=== PATIENT | male | born 1960 | race Caucasian/White ===

== ENCOUNTER 2017-06-28 05:54 | Emergency (ER) | payer OTHER ==
[2017-06-28] MEDS ORDERED: NA CHLORIDE 0.9% 1,000 ML ONE (06:29)
[2017-06-28] MEDS ORDERED: ALBUTEROL 2.5 MG/3 ML NEB SOL ONE (06:29)
[2017-06-28] MEDS ORDERED: IPRATROPIUM BROM 0.5MG/2.5ML ONE (06:29)
[2017-06-28 07:35] LABS: Absolute Lymphocytes (CBC) 1.6 K/uL (0.7-4.9); Absolute Monocytes 1.1 K/uL (0.1-1.3); Absolute Neutrophil 5.4 K/uL (1.8-8.0); Basophils % 1.1 % (0-1.3); Eosinophils % 6.1 % (0-4.4); Hematocrit 45.3 % (39.6-49.0); Lymphocytes % 18.4 % (15.3-44.8); MCH 30.6 pg (27.0-35.0); MCV 92.2 fL (80-100); MPV 9.5 fL (7.6-11.3); Monocytes % 12.3 % (3.3-12.3); RBC Red Blood Cell Count 4.92 M/uL (4.33-5.43)
[2017-06-28 07:45] LABS: Potassium 3.9 mEq/L (3.6-5.0)
[2017-06-28] MEDS ORDERED: ACETAMINOPHEN 325 MG TABLET ONE (08:01)
[2017-06-28] MEDS ORDERED: HYDROCODONE/CHLORPHEN 5 ML/OSYR ONE (08:02)
--- NOTE | 2017-06-28 08:02 | EDPHYS ---
Physician Documentation [facility] Name: Danny Leroy Jr Age: 57 yrs Sex: Male : 1960 Arrival Date: 06/28/2017 Time: 05:57 Bed 18 Private MD: ED Physician Gonzalo Khan HPI: 06/28 06:16 This 57 yrs old Male presents to ER via Ambulatory with complaints of Cough, snw Congestion. 06:16 The patient or guardian reports airway noise, cough, that is constant, flu symptoms, snw low-grade fever, myalgias, no appetite. Onset: The symptoms/episode began/occurred suddenly, yesterday. Severity of symptoms: At their worst the symptoms were moderate, severe. Modifying factors: The symptoms are alleviated by nothing. Associated signs and symptoms: Pertinent positives: diarrhea, fever, nausea, vomiting. The patient has not experienced similar symptoms in the past. The patient has not recently seen a physician, the patient's primary care provider is Dr. Dr. Sutherland. hx of TB, tx x 6 months, had quit smoking and recently started again. Historical: - Allergies: 06:15 No Known Allergies; ag2 - Home Meds: 06:15 None [Active]; ag2 - PMHx: 06:15 Hypertension; ADD/ADHD; ag2 06:23 EXPOSED TO TB; Hepatitis; ag2 - PSHx: 06:23 sx on Right leg; ag2 - Immunization history:: Adult Immunizations not up to date. - Social history:: Smoking status: Patient uses tobacco products, smokes one-half pack cigarettes per day, The patient lives with family, No barriers to communication noted, The patient speaks fluent [place]. ROS: 06:14 Eyes: Negative for injury, pain, redness, and discharge, ENT: Negative for injury, snw pain, and discharge, Neck: Negative for injury, pain, and swelling, Cardiovascular: Negative for chest pain, palpitations, and edema. 06:14 Back: Negative for injury and pain, : Negative for injury, bleeding, discharge, and swelling, MS/Extremity: Negative for injury and deformity, Skin: Negative for injury, rash, and discoloration, Neuro: Negative for headache, weakness, numbness, tingling, and seizure. 06:14 Constitutional: Positive for body aches, chills, fatigue, fever, malaise, poor PO intake. 06:14 Respiratory: Positive for cough. 06:14 Abdomen/GI: Positive for diarrhea. Exam: 06:14 Head/Face: Normocephalic, atraumatic. Eyes: Pupils equal round and reactive to light, snw extra-ocular motions intact. Lids and lashes normal. Conjunctiva and sclera are non-icteric and not injected. Cornea within normal limits. Periorbital areas with no swelling, redness, or edema. 06:14 Neck: Trachea midline, no thyromegaly or masses palpated, and no cervical lymphadenopathy. Supple, full range of motion without nuchal rigidity, or vertebral point tenderness. No Meningismus. Chest/axilla: Normal chest wall appearance and motion. Nontender with no deformity. No lesions are appreciated. Cardiovascular: Regular rate and rhythm with a normal S1 and S2. No gallops, murmurs, or rubs. Normal PMI, no JVD. No pulse deficits. 06:14 Abdomen/GI: Soft, non-tender, with normal bowel sounds. No distension or tympany. No guarding or rebound. No evidence of tenderness throughout. Back: No spinal tenderness. No costovertebral tenderness. Full range of motion. MS/ Extremity: Pulses equal, no cyanosis. Neurovascular intact. Full, normal range of motion. Neuro: Awake and alert, GCS 15, oriented to person, place, time, and situation. Cranial nerves II-XII grossly intact. Motor strength 5/5 in all extremities. Sensory grossly intact. Cerebellar exam normal. Normal gait. 06:14 Constitutional: The patient appears alert, awake, restless, uncomfortable. 06:14 ENT: Mouth: Oral mucosa: dry, Voice: is normal. 06:14 Respiratory: the patient does not display signs of respiratory distress, Respirations: normal, Breath sounds: + upper airway congestion. wheezing: frequent cough. 06:14 Skin: Appearance: Color: normal in color, Temperature: normal temperature, Moisture: dry. Vital Signs: 06:25 BP 139 / 91; Pulse 102; Resp 19; Temp 99.4; Pulse Ox 94% on R/A; Pain 0/10; ag2 08:12 BP 134 / 79; Pulse 104; Resp 22; Pulse Ox 99% on R/A; ph 09:26 BP 128 / 60; Pulse 97; Resp 19; Pulse Ox 97% on R/A; aj MDM: 06:08 Patient medically screened. snw 08:09 Data reviewed: vital signs, nurses notes. Data interpreted: Pulse oximetry: on room air snw is 94 %. Interpretation: acceptable. Counseling: I had a detailed discussion with the patient and/or guardian regarding: the historical points, exam findings, and any diagnostic results supporting the discharge/admit diagnosis, the presence of at least one elevated blood pressure reading (>120/80) during this emergency department visit, lab results, radiology results, to return to the emergency department if symptoms worsen or persist or if there are any questions or concerns that arise at home. Special discussion: I have referred the patient to see his PCP for further evaluation of high blood pressure. Based on the history and exam findings, there is no indication for further emergent testing or inpatient evaluation. I discussed with the patient/guardian the need to see the primary care provider for further evaluation of the symptoms. 06/28 06:14 Order name: Flu; Complete Time: 07:07 snw 06/28 06:14 Order name: CBC with Diff; Complete Time: 07:59 snw 06/28 06:14 Order name: Chest Pa And Lat (2 Views) XRAY; Complete Time: 08:49 snw 06/28 06:14 Order name: Chem 7; Complete Time: 07:59 snw 06/28 06:14 Order name: Blood Culture Adult (2) snw Administered Medications: 06:35 Drug: Albuterol - atroVENT (3:1) (2.5 mg - 0.5 mg) 3 ml Route: Nebulizer; ea 07:00 Follow up: Response: No adverse reaction ea 08:09 Drug: NS 0.9% 1000 ml Route: IV; Rate: 1 bolus; Site: right antecubital; ph 09:28 Follow up: Response: No adverse reaction; IV Status: Completed infusion; IV Intake: aj 1000ml 08:09 Drug: Tussionex Pennkinetic ER 5 ml Route: PO; ph 09:27 Follow up: Response: No adverse reaction aj 08:09 Drug: Tylenol 650 mg Route: PO; ph 09:28 Follow up: Response: No adverse reaction aj 09:15 Drug: fentaNYL (PF) 25 mcg Route: IM; Site: right deltoid; ph 09:28 Follow up: Response: No adverse reaction aj Disposition: 06/28/17 08:01 Discharged to Home. Impression: Bronchitis, not specified as acute or chronic. - Condition is Stable. - Discharge Instructions: Acute Bronchitis, Fever, Adult, Smoking Cessation, Upper Respiratory Infection, Adult, Cool Mist Vaporizers. - Prescriptions for Zyrtec 10 mg Oral Tablet - take 1 tablet by ORAL route once daily As needed; 20 tablet. Prednisone 20 mg Oral Tablet - take 2 tablet by ORAL route once daily for 5 days; 10 tablet. Albuterol Sulfate 90 mcg/actuation - inhale 1-2 puff by INHALATION route every 4-6 hours; 1 Inhaler. Zithromax 500 mg Oral Tablet - take 1 tablet by ORAL route once daily for 5 days; 5 tablet. - Medication Reconciliation Form, Thank You Letter, Antibiotic Education, Prescription Opioid Use form. - Follow up: Private Physician; When: 2 - 3 days; Reason: Recheck today's complaints, Continuance of care, Re-evaluation by your physician. Follow up: Emergency Department; When: As needed; Reason: Worsening of condition. Addendum: 07/01/2017 02:46 Co-signature as Attending Physician, Gonzalo Khan MD. g s Signatures: Dispatcher [employer] Apurva Elizabeth, RN Lisa Hickman, TRANSPORT ENGINEER-C TRANSPORT ENGINEER-Jazminew Corry Pelaez, RN Josie Díaz ph, RN Gonzalo Wan ea, MD MD gs Garcia, Marya [facility]
--- NOTE | 2017-06-28 08:02 | ER ---
Nurse's Notes [facility] Name: Danny Leroy Jr Age: 57 yrs Sex: Male : 1960 Arrival Date: 06/28/2017 Time: 05:57 Bed 18 Private MD: Diagnosis: Bronchitis, not specified as acute or chronic Presentation: 06/28 06:09 Presenting complaint: Patient states: Patient started coughing yesterday. Patient also ag2 started having vomiting and diarrhea that started yesterday. Transition of care: patient was not received from another setting of care. Resp Distress? No respiratory distress is noted at this time. Onset of symptoms was June 27, 2017. Care prior to arrival:. Activity prior to arrival: None. 06:09 Method Of Arrival: Ambulatory ag2 06:09 Acuity: MARSHA 3 ag2 Triage Assessment: 06:23 Pain: Denies pain. Respiratory: Airway is patent Breath sounds with wheezes ag2 bilaterally. in right middle lobe, left lower lobe, left posterior lower lobe and right posterior middle lobe. Historical: - Allergies: 06:15 No Known Allergies; ag2 - Home Meds: 06:15 None [Active]; ag2 - PMHx: 06:15 Hypertension; ADD/ADHD; ag2 06:23 EXPOSED TO TB; Hepatitis; ag2 - PSHx: 06:23 sx on Right leg; ag2 - Immunization history:: Adult Immunizations not up to date. - Social history:: Smoking status: Patient uses tobacco products, smokes one-half pack cigarettes per day, The patient lives with family, No barriers to communication noted, The patient speaks fluent [place]. Screenin:28 Abuse screen: Denies threats or abuse. Nutritional screening: No deficits noted. ag2 Tuberculosis screening: Has had TB. Fall Risk Secondary diagnosis (15 points) Patient becomes dizzy. Assessment: 06:28 General: Appears in no apparent distress. ill, unkempt, Behavior is calm, cooperative. ag2 Pain: Denies pain. Neuro: Level of Consciousness is awake, alert, obeys commands, Oriented to person, place, time, Systems Software Engineer are equal bilaterally Moves all extremities. Gait is Patient states occasionally he becomes dizzy while walking. . Speech is normal, Pupils are sluggish. Cardiovascular: Heart tones S1 S2 present Capillary refill is > 3 seconds Pulses are all present. Rhythm is sinus tachycardia. Respiratory: Airway is patent Breath sounds with wheezes bilaterally. in right middle lobe, left lower lobe, right lower lobe, left posterior lower lobe, right posterior middle lobe and right posterior lower lobe. GI: Bowel sounds present X 4 quads. Abd is soft Abd is non tender X 4 quads Reports diarrhea, vomiting. : No signs and/or symptoms were reported regarding the genitourinary system. 07:30 Reassessment: Patient appears in no apparent distress at this time. Patient and/or ph family updated on plan of care and expected duration. Pain level reassessed. Patient is alert, oriented x 3, equal unlabored respirations, skin warm/dry/pink. Pt resting quietly, c/o headache and requesting Tylenol, ERP notified, see MAY. 08:14 Reassessment: Patient appears in no apparent distress at this time. No changes from ph previously documented assessment. ERP at bedside to speak w/ pt about test results, awaiting completion of IV fluids before discharge. Vital Signs: 06:25 BP 139 / 91; Pulse 102; Resp 19; Temp 99.4; Pulse Ox 94% on R/A; Pain 0/10; ag2 08:12 BP 134 / 79; Pulse 104; Resp 22; Pulse Ox 99% on R/A; ph 09:26 BP 128 / 60; Pulse 97; Resp 19; Pulse Ox 97% on R/A; aj ED Course: 05:57 Patient arrived in ED. am2 06:05 Lisa [facility] FNP-C [facility]. snw 06:05 Gonzalo Khan MD is Attending Physician. snw 06:13 Triage completed. ag2 06:17 Josie Chand, RN is Primary Nurse. ea 06:28 Patient has correct armband on for positive identification. Bed in low position. Call ag2 light in reach. Side rails up X2. 06:39 Chest Pa And Lat (2 Views) XRAY In Process Unspecified. EDMS 06:45 Missed attempt(s): 22 gauge in left forearm. Bleeding controlled, band aid applied, ea catheter tip intact. 07:09 Missed attempt(s): 24 gauge in left hand. Bleeding controlled, band aid applied, ea catheter tip intact. 07:35 Missed attempt(s): 22 gauge in right antecubital area. Bleeding controlled, band aid ph applied, catheter tip intact. 08:00 Accessed peripheral vein via ultrasound, utilizing dynamic ultrasound technique using ph 18G Sureflo IV catheter ,sterile technique, per hospital protocol. Clean \T\ dry. Dressing intact. Good blood return. Flushes easily. inserted by Dr Jamison. 08:10 No provider procedures requiring assistance completed. ph 09:26 IV discontinued, intact. aj Administered Medications: 06:35 Drug: Albuterol - atroVENT (3:1) (2.5 mg - 0.5 mg) 3 ml Route: Nebulizer; ea 07:00 Follow up: Response: No adverse reaction ea 08:09 Drug: NS 0.9% 1000 ml Route: IV; Rate: 1 bolus; Site: right antecubital; ph 09:28 Follow up: Response: No adverse reaction; IV Status: Completed infusion; IV Intake: aj 1000ml 08:09 Drug: Tussionex Pennkinetic ER 5 ml Route: PO; ph 09:27 Follow up: Response: No adverse reaction aj 08:09 Drug: Tylenol 650 mg Route: PO; ph 09:28 Follow up: Response: No adverse reaction aj 09:15 Drug: fentaNYL (PF) 25 mcg Route: IM; Site: right deltoid; ph 09:28 Follow up: Response: No adverse reaction aj Intake: 09:28 IV: 1000ml; Total: 1000ml. aj Outcome: 08:01 Discharge ordered by . grey 09:26 Discharged to home ambulatory. aj 09:26 Condition: good 09:26 Discharge instructions given to patient, Instructed on discharge instructions, follow up and referral plans. medication usage, Demonstrated understanding of instructions, follow-up care, medications, Prescriptions given X 4. 09:29 Patient left the ED. aj Signatures: Dispatcher [employer] Apurva Elizabeth RN RN Lisa Short, PLATE GLASS GRINDER-C PLATE GLASS GRINDER-Csnw Corry Pelaez RN Apurva Clark ph, Elena, RN Marya Sinclair ea ag2
--- NOTE | 2017-06-28 08:45 | RAD REPORT ---
EXAM DESCRIPTION: RAD - Chest Pa And Lat (2 Views) - 06/28/2017 6:38 am CLINICAL HISTORY: Cough, vomiting, diarrhea COMPARISON: 09/15/2007 FINDINGS: The lungs are clear. The heart is normal in size. No displaced fractures. IMPRESSION: No acute or concerning finding suspected.
[2017-06-28] MEDS ORDERED: FENTANYL CITR 100 MCG/2 ML ONE (09:09)
== END 2017-06-28 09:29 | disposition home or self-care (01) ==
LOC: ER 05:54
DX: J40 Bronchitis, not specified as acute or chronic (principal); I10 Essential (primary) hypertension; F17.210 Nicotine dependence, cigarettes, uncomplicated
CPT/HCPCS: 36415; 71046; 80048; 85025; 87040; 87804; 94640; 96360; 96372; 99285; J3010; J7030

== ENCOUNTER 2018-06-20 19:37 | Emergency (ER) | payer OTHER, SELFPAY ==
--- OUTSIDE RECORDS SUMMARY | 2018-06-20 19:39 | XMS REPORT ---
:1960 [facility] [address] [place] [address] Dr. Celeste [address] [place] [id number] Care Team Providers Name Role Phone Unavailable Unavailable Unavailable Problems This patient has no known problems. Allergies, Adverse Reactions, Alerts This patient has no known allergies or adverse reactions. Medications This patient has no known medications.
[2018-06-20] MEDS ORDERED: HYDROCODONE/APAP 5/325 MG TAB ONE (20:03)
--- NOTE | 2018-06-20 20:26 | RAD REPORT ---
EXAM DESCRIPTION: RAD - Wrist Right 3 View - 06/20/2018 8:19 pm CLINICAL HISTORY: Pain;Swelling Pain COMPARISON: Wrist Right 2 View dated 03/03/2012 FINDINGS: Acute intraarticular distal radius fracture is seen. Ulnar styloid avulsion fracture also present. Moderate adjacent soft tissue swelling.
--- NOTE | 2018-06-20 21:20 | EDPHYS ---
Physician Documentation [facility] Name: Danny Leroy Jr Age: 58 yrs Sex: Male : 1960 Arrival Date: 06/20/2018 Time: 19:38 Bed 13 Private MD: LUTHER SCHERER ED Physician Gonzalo Khan HPI: 06/20 20:57 This 58 yrs old Male presents to ER via Ambulatory with complaints of Wrist gs Injury. 20:57 The patient or guardian reports injury. The complaints affect the right wrist gs diffusely. Context: resulted from a fall, on an outstretched hand. Onset: The symptoms/episode began/occurred acutely, just prior to arrival. Modifying factors: the symptoms are aggravated by movement. Associated signs and symptoms: Pertinent negatives: decreased sensation distally, numbness distally. Compartment Syndrome negative for numbness, tingling. The patient has not experienced similar symptoms in the past. The patient has not recently seen a physician. 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 - Social history:: Smoking status: Patient uses tobacco products, denies chronic smoking, but will smoke occasionally. - Ebola Screening: : No symptoms or risks identified at this time. ROS: 20:57 All other systems are negative. gs Exam: 20:57 Constitutional: This is a well developed, well nourished patient who is awake, alert, gs and in no acute distress. Head/Face: Normocephalic, atraumatic. Eyes: Pupils equal round and reactive to light, extra-ocular motions intact. Lids and lashes normal. Conjunctiva and sclera are non-icteric and not injected. Cornea within normal limits. Periorbital areas with no swelling, redness, or edema. ENT: Nares patent. No nasal discharge, no septal abnormalities noted. Tympanic membranes are normal and external auditory canals are clear. Oropharynx with no redness, swelling, or masses, exudates, or evidence of obstruction, uvula midline. Mucous membranes moist. Neck: Trachea midline, no thyromegaly or masses palpated, and no cervical lymphadenopathy. Supple, full range of motion without nuchal rigidity, or vertebral point tenderness. No Meningismus. Chest/axilla: Normal chest wall appearance and motion. Nontender with no deformity. No lesions are appreciated. Cardiovascular: Regular rate and rhythm with a normal S1 and S2. No gallops, murmurs, or rubs. Normal PMI, no JVD. No pulse deficits. Respiratory: Lungs have equal breath sounds bilaterally, clear to auscultation and percussion. No rales, rhonchi or wheezes noted. No increased work of breathing, no retractions or nasal flaring. Abdomen/GI: Soft, non-tender, with normal bowel sounds. No distension or tympany. No guarding or rebound. No evidence of tenderness throughout. Back: No spinal tenderness. No costovertebral tenderness. Full range of motion. Skin: Warm, dry with normal turgor. Normal color with no rashes, no lesions, and no evidence of cellulitis. Neuro: Awake and alert, GCS 15, oriented to person, place, time, and situation. Cranial nerves II-XII grossly intact. Motor strength 5/5 in all extremities. Sensory grossly intact. Cerebellar exam normal. Normal gait. 20:57 Musculoskeletal/extremity: Extremities: noted in the dorsal aspect of right wrist: ROM: limited active range of motion due to pain, limited passive range of motion due to pain, Pulses: are normal with no appreciated deficits, Sensation intact. Joints: the right wrist displays effusion, limited range of motion, painful range of motion, swelling, tenderness. Vital Signs: 19:43 BP 159 / 90; Pulse 79; Resp 18; Temp 98; Pulse Ox 99% on R/A; Weight 81.65 kg (R); ak1 Height 5 ft. 7 in. (170.18 cm) (R); Pain 8/10; 20:30 BP 149 / 95; Pulse 73; Resp 16; Pulse Ox 100% on R/A; mt 21:37 BP 149 / 94; Pulse 66; Resp 16; Pulse Ox 97% on R/A; Pain 7/10; aa1 19:43 Body Mass Index 28.19 (81.65 kg, 170.18 cm) ak1 Procedures: 20:57 Splinting: Splint applied to right wrist using Orthoglass splint, applied by tech. gs Examined by me, post splint application: neurovascular intact, 2+ distal pulses palpable, brisk capillary refill noted, Patient tolerated well. MDM: 19:51 Patient medically screened. gs 20:57 Differential diagnosis: dislocation, closed fracture, contusion. Data reviewed: vital gs signs, nurses notes. Counseling: I had a detailed discussion with the patient and/or guardian regarding: the historical points, exam findings, and any diagnostic results supporting the discharge/admit diagnosis, the need for outpatient follow up, a orthopedic surgeon. Response to treatment: the patient's symptoms have markedly improved after treatment, and as a result, I will discharge patient. 06/20 19:48 Order name: Wrist Right 3 View XRAY; Complete Time: 20:30 aa 06/20 20:31 Order name: Splint - Sugar Tong - Forearm: to fingertips; Complete Time: 21:34 gs Administered Medications: 20:00 Drug: Vernalis 5 mg-325 mg 1 tabs Route: PO; aa1 21:34 Follow up: Response: No adverse reaction; Pain is decreased aa1 Disposition: 06/20/18 21:19 Discharged to Home. Impression: Colles' fracture of right radius. - Condition is Stable. - Discharge Instructions: Wrist Fracture Treated With Immobilization, [id number]. - Prescriptions for Tylenol- Codeine #4 300-60 mg Oral Tablet - take 1 tablet by ORAL route every 6 hours As needed; 12 tablet. - Medication Reconciliation Form, Thank You Letter, Antibiotic Education, Prescription Opioid Use form. - Follow up: Joel Rosa MD; When: 2 - 3 days; Reason: Re-evaluation by your physician. Signatures: Dispatcher [employer] Dottie Colorado RN RN aa1 Gretchen Michaud RN RN ak1 Gonzalo Khan MD MD gs Corrections: (The following items were deleted from the chart) 21:40 21:19 06/20/2018 21:19 Discharged to Home. Impression: Colles' fracture of right aa1 radius. Condition is Stable. Forms are Medication Reconciliation Form, Thank You Letter, Antibiotic Education, Prescription Opioid Use. Follow up: Joel Rosa; When: 2 - 3 days; Reason: Re-evaluation by your physician. gs
--- NOTE | 2018-06-20 21:20 | ER ---
Nurse's Notes [facility] Name: Danny Leroy Jr Age: 58 yrs Sex: Male : 1960 Arrival Date: 06/20/2018 Time: 19:38 Bed 13 Private MD: LUTHER SCHERER Diagnosis: Colles' fracture of right radius Presentation: 06/20 19:43 Presenting complaint: Patient states: slip on water, fall from standing and tried to ak1 catch himself with right arm. pt with pain, swelling and deformity to right wrist since 1800. Transition of care: patient was not received from another setting of care. Onset of symptoms was June 20, 2018. Risk Assessment: Do you want to hurt yourself or someone else? Patient reports no desire to harm self or others. Initial Sepsis Screen: Does the patient meet any 2 criteria? No. Patient's initial sepsis screen is negative. Does the patient have a suspected source of infection? No. Patient's initial sepsis screen is negative. Care prior to arrival: None. 19:43 Method Of Arrival: Ambulatory ak1 19:43 Acuity: MARSHA 3 ak1 Triage Assessment: 19:45 General: Appears in no apparent distress. uncomfortable, Behavior is calm, cooperative. ak1 Pain: Complains of pain in dorsal aspect of right wrist and palmar aspect of right wrist. 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 - Social history:: Smoking status: Patient uses tobacco products, denies chronic smoking, but will smoke occasionally. - Ebola Screening: : No symptoms or risks identified at this time. Screenin:45 Abuse screen: Denies threats or abuse. Denies injuries from another. Nutritional ak1 screening: No deficits noted. Tuberculosis screening: Never had TB. Risk factors: contact with infectious person. Fall Risk None identified. Assessment: 19:45 General: Appears in no apparent distress. comfortable, Behavior is calm, cooperative, aa1 appropriate for age. Pain: Complains of pain in dorsal aspect of right wrist and palmar aspect of right wrist. Neuro: Level of Consciousness is awake, alert, obeys commands, Oriented to person, place, time, situation, Moves all extremities. Respiratory: Airway is patent Respiratory effort is even, unlabored, Respiratory pattern is regular, symmetrical. GI: No signs and/or symptoms were reported involving the gastrointestinal system. : No signs and/or symptoms were reported regarding the genitourinary system. EENT: No signs and/or symptoms were reported regarding the EENT system. Derm: Skin is intact, is healthy with good turgor, Skin is pink, warm \T\ dry. Musculoskeletal: Circulation, motion, and sensation intact. Capillary refill < 3 seconds, Range of motion: limited in right wrist Bony deformity noted of dorsal aspect of right wrist. 21:09 Reassessment: Patient appears in no apparent distress at this time. Patient and/or aa1 family updated on plan of care and expected duration. Pain level reassessed. Patient is alert, oriented x 3, equal unlabored respirations, skin warm/dry/pink. Awaiting splint application and provider reassessment. 21:37 Reassessment: Patient appears in no apparent distress at this time. Patient is alert, aa1 oriented x 3, equal unlabored respirations, skin warm/dry/pink. Discussed d/c \T\ f/u instructions with pt; denies questions or concerns at this time. Patient states feeling better. Vital Signs: 19:43 BP 159 / 90; Pulse 79; Resp 18; Temp 98; Pulse Ox 99% on R/A; Weight 81.65 kg (R); ak1 Height 5 ft. 7 in. (170.18 cm) (R); Pain 8/10; 20:30 BP 149 / 95; Pulse 73; Resp 16; Pulse Ox 100% on R/A; mt 21:37 BP 149 / 94; Pulse 66; Resp 16; Pulse Ox 97% on R/A; Pain 7/10; aa1 19:43 Body Mass Index 28.19 (81.65 kg, 170.18 cm) ak1 ED Course: 19:38 Patient arrived in ED. am2 19:38 LUTHER SCHERER is Private Physician. am2 19:43 Dottie España RN is Primary Nurse. aa1 19:43 Gonzalo Khan MD is Attending Physician. gs 19:44 Triage completed. ak1 19:45 Arm band placed on Patient placed in an exam room, on a stretcher, Patient notified of ak1 wait time. 19:45 Patient has correct armband on for positive identification. Bed in low position. Call aa1 light in reach. Pulse ox on. NIBP on. Pillow given. 20:20 Wrist Right 3 View XRAY In Process Unspecified. EDMS 21:18 Joel Rosa MD is Referral Physician. gs 21:37 No provider procedures requiring assistance completed. Patient did not have IV access aa1 during this emergency room visit. Orthoglass splint: Sugar tong splint applied on right arm. by Cary Mead Sling applied to right arm. Administered Medications: 20:00 Drug: [place]loo 5 mg-325 mg 1 tabs Route: PO; aa1 21:34 Follow up: Response: No adverse reaction; Pain is decreased aa1 Outcome: 21:19 Discharge ordered by MD. gs 21:37 Discharged to home ambulatory, with significant other. aa1 21:37 Condition: good 21:37 Discharge instructions given to patient, Instructed on discharge instructions, follow up and referral plans. medication usage, Demonstrated understanding of instructions, follow-up care, wound care, splint care, Prescriptions given X 1. 21:40 Patient left the ED. aa1 Signatures: Dispatcher [employer] EDMS Dottie España RN RN aa1 Gretchen Michaud RN RN ak1 Apurva Whitt am2 Cary Mead mt, Gregory, MD MD gs
== END 2018-06-20 21:40 | disposition home or self-care (01) ==
LOC: ER 19:37
PROC: 2W3CX1Z Immobilization of Right Lower Arm using Splint (ICD-10-PCS; principal; 2018-06-20)
DX: S52.531A Colles' fracture of right radius, initial encounter for closed fracture (principal); W19.XXXA Unspecified fall, initial encounter; Y93.9 Activity, unspecified; Y92.9 Unspecified place or not applicable; Z72.0 Tobacco use; I10 Essential (primary) hypertension
CPT/HCPCS: 99284

== ENCOUNTER 2019-03-20 16:00 | Emergency (ER) | payer OTHER ==
--- OUTSIDE RECORDS SUMMARY | 2019-03-20 16:02 | XMS REPORT ---
:1960 [facility] Address [address] [place] [address] Dr. [place] [address] [place] [id number] Care Team Providers Name Role Phone Unavailable Unavailable Unavailable Problems This patient has no known problems. Allergies, Adverse Reactions, Alerts This patient has no known allergies or adverse reactions. Medications This patient has no known medications.
--- OUTSIDE RECORDS SUMMARY | 2019-03-20 16:03 | XMS REPORT ---
:1960 Author Organization [employer] Care Team Providers Name Role Phone Ginny Chopra Provider Role Unavailable Allergies No Known Allergies Problems Problem Type Condition Code Onset Dates Condition Status Problem Pain in joint of right wrist M25.531 Active Problem Closed Colles'' fracture of right S52.531A Active radius, initial encounter Problem Closed displaced fracture of S52.611A Active styloid process of right ulna, initial encounter Problem History of hepatitis C Z86.19 Active Problem Essential hypertension I10 Active Problem Anxiety F41.9 Active Problem Closed traumatic displaced Colles' S52.531G Active fracture of right radius with delayed healing Problem Closed displaced fracture of S52.611D Active styloid process of right ulna with routine healing Problem Closed Colles' fracture of right S52.531D Active radius with routine healing Problem Acquired hypothyroidism E03.9 Active Problem Reactive depression F32.9 Active Medications Medication Code Code Instructions Start End Date Status Dosage System Date Metoprolol [facility] 42989214318 50 MG Oral Once Active TAKE 1 Succinate ER a day TABLET BY MOUTH EVERY DAY Results No Known Results Summary Purpose eClinicalWorks Submission
--- OUTSIDE RECORDS SUMMARY | 2019-03-20 16:03 | XMS REPORT ---
[...] Medications Medication Code Code Instructions Start End Status Dosage System Date Date Gabapentin [facility] 09606700911 400 MG Oral Active TAKE 2 Once a day CAPSULES BY MOUTH AT BEDTIME Metoprolol [facility] 19829585816 50 MG Oral Once Active TAKE 1 Succinate ER a day TABLET BY MOUTH EVERY DAY Tramadol HCl [facility] 12368121494 50 MG Oral Active (Schedule IV Drug) TAKE 1 TABLET BY MOUTH EVERY 6 (SIX) HOURS NEEDED FOR PAIN (SCALE 7-10). BusPIRone HCl [facility] 30039989724 10 MG Oral Active TAKE 1 TABLET BY MOUTH TWICE A DAY Levothyroxine ND 26038182792 75 MCG Oral Active TAKE 1 Sodium Once a day TABLET BY MOUTH EVERY DAY IN THE MORNING Felodipine ER [facility] 18721480100 5 MG Orally Active 1 tablet Once a day Results No Known Results Summary Purpose eClinicalWorks Submission
--- OUTSIDE RECORDS SUMMARY | 2019-03-20 16:04 | XMS REPORT ---
:1960 Author Organization eClinicalWorks Care Team Providers Name Role Phone Ginny Chopra Provider Role Unavailable Allergies, Adverse Reactions, Alerts Substance Reaction Event Type N.K.D.A. Info Not Available Non Drug Allergy Problems Problem Type Condition Code Onset Dates Condition Status Problem Acquired hypothyroidism E03.9 Active Problem Other chronic pain G89.29 Active Problem Anxiety F41.9 Active Problem Viral URI J06.9 Active Assessment Cough R05 Active Problem Acute non-recurrent frontal J01.10 Active sinusitis Assessment Acute non-recurrent frontal J01.10 Active sinusitis Problem Cough R05 Active Problem Lumbago with sciatica, right side M54.41 Active Problem Lumbago with sciatica, left side M54.42 Active Problem Closed traumatic displaced Colles' S52.531G Active fracture of right radius with delayed healing Problem Mass, scrotum N50.89 Active Problem History of hepatitis C Z86.19 Active Problem Pain in joint of right wrist M25.531 Active Assessment Viral URI J06.9 Active Problem Closed Colles' fracture of right S52.531D Active radius with routine healing Problem Closed displaced fracture of S52.611D Active styloid process of right ulna with routine healing Problem Closed displaced fracture of S52.611A Active styloid process of right ulna, initial encounter Problem Reactive depression F32.9 Active Problem Closed Colles'' fracture of right S52.531A Active radius, initial encounter Problem Essential hypertension I10 Active Medications Medication Code Code Instructions Start End Status Dosage System Date Date Levothyroxine [facility] 86201337542 75 MCG Oral Active TAKE 1 Sodium Once a day TABLET BY MOUTH EVERY DAY IN THE MORNING Gabapentin [facility] 53714097477 400 MG Oral Active TAKE 2 Once a day CAPSULES BY MOUTH AT BEDTIME Jazzyludaseun Eron ND 96028801308 100 MG Orally Feb 03, Feb 13, Active 1 capsule Three times a 2019 2019 as needed day Felodipine ER ND 54258032981 5 MG Orally Active 1 tablet Once a day BusPIRone HCl ND 29388630376 10 MG Oral Active TAKE 1 TABLET BY MOUTH TWICE A DAY Tramadol HCl [facility] 29804426800 50 MG Oral Active (Schedule IV Drug) TAKE 1 TABLET BY MOUTH EVERY 6 (SIX) HOURS NEEDED FOR PAIN (SCALE 7-10). Metoprolol [facility] 86621572015 50 MG Oral Once Active TAKE 1 Succinate ER a day TABLET BY MOUTH EVERY DAY Results No Known Results Summary Purpose eClinicalWorks Submission
--- OUTSIDE RECORDS SUMMARY | 2019-03-20 16:04 | XMS REPORT ---
[...] Active Problem Viral URI J06.9 Active Assessment Essential hypertension I10 Active Problem Acute non-recurrent frontal J01.10 Active sinusitis Assessment Anxiety F41.9 Active Assessment Other chronic pain G89.29 Active Problem Cough R05 Active Problem Lumbago with sciatica, right side M54.41 Active Problem Lumbago with sciatica, left side M54.42 Active Problem Closed traumatic displaced Colles' S52.531G Active fracture of right radius with delayed healing Problem Mass, scrotum N50.89 Active Problem History of hepatitis C Z86.19 Active Problem Pain in joint of right wrist M25.531 Active Assessment Acquired hypothyroidism E03.9 Active Problem Closed Colles' fracture of right S52.531D Active radius with routine healing Problem Closed displaced fracture of S52.611D Active styloid process of right ulna with routine healing Problem Closed displaced fracture of S52.611A Active styloid process of right ulna, initial encounter Problem Reactive depression F32.9 Active Assessment Mass, scrotum N50.89 Active Problem Closed Colles'' fracture of right S52.531A Active radius, initial encounter Problem Essential hypertension I10 Active Medications Medication Code Code Instructions Start End Status Dosage System Date Date Metoprolol [facility] 29405242616 50 MG Oral Once Active TAKE 1 Succinate ER a day TABLET BY MOUTH EVERY DAY Tramadol HCl [facility] 40221129479 50 MG Oral Active (Schedule IV Drug) TAKE 1 TABLET BY MOUTH EVERY 6 (SIX) HOURS NEEDED FOR PAIN (SCALE 7-10). Felodipine ER ND 69648359029 5 MG Orally Active 1 tablet Once a day Levothyroxine ND 19847666717 75 MCG Oral Active TAKE 1 Sodium Once a day TABLET BY MOUTH EVERY DAY IN THE MORNING Gabapentin [facility] 87951401408 400 MG Oral Active take 2 Once a day capsules by mouth at bedtime Jazzyludaseun [place] [facility] 75120077317 100 MG Orally Feb 03, Feb 13, Active 1 capsule Three times a 2018 2018 as needed day BusPIRone HCl [facility] 57470046451 10 MG Oral Active TAKE 1 TABLET BY MOUTH TWICE A DAY Results No Known Results Summary Purpose eClinicalWorks Submission
--- OUTSIDE RECORDS SUMMARY | 2019-03-20 16:04 | XMS REPORT ---
:1960 Author Organization eClinicalWorks Care Team Providers Name Role Phone Niki Bill Provider Role Unavailable Allergies, Adverse Reactions, Alerts Substance Reaction Event Type N.K.D.A. Info Not Available Non Drug Allergy Problems Problem Type Condition Code Onset Dates Condition Status Problem Acquired hypothyroidism E03.9 Active Problem Other chronic pain G89.29 Active Problem Anxiety F41.9 Active Problem Viral URI J06.9 Active Problem Acute non-recurrent frontal J01.10 Active sinusitis Problem Cough R05 Active Problem Lumbago with sciatica, right side M54.41 Active Problem Lumbago with sciatica, left side M54.42 Active Problem Closed traumatic displaced Colles' S52.531G Active fracture of right radius with delayed healing Problem Mass, scrotum N50.89 Active Problem History of hepatitis C Z86.19 Active Problem Pain in joint of right wrist M25.531 Active Assessment Mass, scrotum N50.89 Active Problem Closed Colles' fracture of right [...] End Status Dosage System Date Date Metoprolol [facility] 76128195913 50 MG Oral Once Active TAKE 1 Succinate ER a day TABLET BY MOUTH EVERY DAY Gabapentin ND 15650733979 400 MG Oral Active take 2 Once a day capsules by mouth at bedtime Felodipine ER ND 23848929236 5 MG Orally Active 1 tablet Once a day Tramadol HCl [facility] 16369089715 50 MG Oral Active (Schedule IV Drug) TAKE 1 TABLET BY MOUTH EVERY 6 (SIX) HOURS NEEDED FOR PAIN (SCALE 7-10). BusPIRone HCl [facility] 66827981923 10 MG Oral Active TAKE 1 TABLET BY MOUTH TWICE A DAY Levothyroxine [facility] 12764043209 75 MCG Oral Active TAKE 1 Sodium Once a day TABLET BY MOUTH EVERY DAY IN THE MORNING Results No Known Results Summary Purpose eClinicalWorks Submission
--- OUTSIDE RECORDS SUMMARY | 2019-03-20 16:04 | XMS REPORT ---
[...] of right wrist M25.531 Active Problem Closed Colles' fracture of right [...] Start End Date Status Dosage System Date Felodipine ER [facility] 71843912080 5 MG Orally Once Active 1 tablet a day Results No Known Results Summary Purpose eClinicalWorks Submission
--- OUTSIDE RECORDS SUMMARY | 2019-03-20 16:04 | XMS REPORT ---
[...] End Status Dosage System Date Date Levothyroxine [facility] 41817477729 75 MCG Oral Active TAKE 1 Sodium Once a day TABLET BY MOUTH EVERY DAY IN THE MORNING Metoprolol [facility] 07515671644 50 MG Oral Once Active TAKE 1 Succinate ER a day TABLET BY MOUTH EVERY DAY Results No Known Results Summary Purpose eClinicalWorks Submission
--- OUTSIDE RECORDS SUMMARY | 2019-03-20 16:04 | XMS REPORT ---
:1960 Author Organization eClinicalWorks Care Team Providers Name Role Phone Niki Bill Provider Role Unavailable Allergies No Known Allergies [...] encounter Problem Essential hypertension I10 Active Medications No Known Medications Results No Known Results Summary Purpose eClinicalWorks Submission
[2019-03-20] MEDS ORDERED: IPRATROPIUM BROM 0.5MG/2.5ML ONE ×2 (16:32→16:33)
[2019-03-20] MEDS ORDERED: ALBUTEROL 2.5 MG/3 ML NEB SOL ONE ×2 (16:32)
--- NOTE | 2019-03-20 16:44 | RAD REPORT ---
EXAM DESCRIPTION: Jameson Bradshaw (2 Views)03/20/2019 4:38 pm CLINICAL HISTORY: Cough COMPARISON: 2018 FINDINGS: The lungs appear clear of acute infiltrate. The heart is normal size IMPRESSION: No acute abnormalities displayed
--- NOTE | 2019-03-20 17:01 | ER ---
Nurse's Notes [facility] Name: Danny Leroy Jr Age: 59 yrs Sex: Male : 1960 Arrival Date: 03/20/2019 Time: 16:02 Bed 25 Private MD: Diagnosis: Influenza due to certain identified influenza viruses Presentation: 03/20 16:09 Presenting complaint: Patient states: about 5 days ago i was up here with my sister tw2 with flu/pneumonia, i have been running off and on and i have this cough and congestion and when i lay down it gets worse. Transition of care: patient was not received from another setting of care. Onset of symptoms was March 20, 2019. Risk Assessment: Do you want to hurt yourself or someone else? Patient reports no desire to harm self or others. Initial Sepsis Screen: Does the patient meet any 2 criteria? No. Patient's initial sepsis screen is negative. Does the patient have a suspected source of infection? No. Patient's initial sepsis screen is negative. Care prior to arrival: None. 16:09 Method Of Arrival: Ambulatory tw2 16:09 Acuity: MARSHA 3 tw2 Triage Assessment: 16:11 General: Appears in no apparent distress. Behavior is calm, cooperative, appropriate tw2 for age. Pain: Complains of pain in headach and bodyache. 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 - Social history:: Smoking status: Patient/guardian denies using tobacco, Smoking status: Patient uses tobacco products, "i quit 2 days ago, i was smoking 0.5 pk/day". - Ebola Screening: : Patient denies travel to an Ebola-affected area in the 21 days before illness onset. Screenin:33 Abuse screen: Denies threats or abuse. Denies injuries from another. Nutritional aj1 screening: No deficits noted. Tuberculosis screening: No symptoms or risk factors identified. 17:21 Fall Risk None identified. aj1 Assessment: 16:33 General: Appears in no apparent distress. comfortable, Behavior is calm, cooperative, aj1 appropriate for age. Pain: Complains of pain in face, back and chest Pain does not radiate. Pain currently is 6 out of 10 on a pain scale. Neuro: Level of Consciousness is awake, alert, obeys commands, Oriented to person, place, time, situation. Cardiovascular: Patient's skin is warm and dry. Respiratory: Airway is patent Respiratory effort is even, unlabored, Respiratory pattern is regular, symmetrical. Respiratory: Reports shortness of breath on exertion cough that is hacking, persistent Breath sounds are coarse bilaterally. GI: No signs and/or symptoms were reported involving the gastrointestinal system. : No signs and/or symptoms were reported regarding the genitourinary system. EENT: Reports nasal congestion nasal discharge. Derm: No signs and/or symptoms reported regarding the dermatologic system. Skin is pink, warm \\T\\ dry. normal. Musculoskeletal: No signs and/or symptoms reported regarding the musculoskeletal system. Circulation, motion, and sensation intact. 17:20 Reassessment: Patient appears in no apparent distress at this time. No changes from aj1 previously documented assessment. Patient and/or family updated on plan of care and expected duration. Pain level reassessed. Patient is alert, oriented x 3, equal unlabored respirations, skin warm/dry/pink. Vital Signs: 16:11 BP 105 / 82; Pulse 88; Resp 18; Temp 98.5(TE); Pulse Ox 99% on R/A; Weight 74.84 kg; tw2 Height 5 ft. 7 in. (170.18 cm); Pain 7/10; 17:20 BP 112 / 65; Pulse 82; Resp 18; Pulse Ox 99% on R/A; aj1 16:11 Body Mass Index 25.84 (74.84 kg, 170.18 cm) tw2 ED Course: 16:02 Patient arrived in ED. as 16:11 Triage completed. tw2 16:11 Arm band placed on. tw2 16:17 Kimber Luther, MONICA is Primary Nurse. aj1 16:17 Ce Birch FNP-C is [facility]. kb 16:17 Christopher Corcoran MD is Attending Physician. kb 16:20 Flu and/or RSV swab sent to lab. Patient maintains SpO2 saturation greater than 95% on jp3 room air. 16:30 Bed in low position. Call light in reach. Side rails up X 1. Warm blanket given. Verbal jp3 reassurance given. Pulse ox on. NIBP on. 16:30 Flu Sent. jp3 16:33 No provider procedures requiring assistance completed. aj1 17:21 Patient did not have IV access during this emergency room visit. aj1 Administered Medications: 16:51 Drug: AtroVENT Aerosol 0.5 mg Route: Inhalation; aj1 16:51 Drug: Albuterol 2.5 mg Route: Inhalation; aj1 Outcome: 16:59 Discharge ordered by . kb 17:21 Discharged to home ambulatory. aj1 17:21 Condition: good 17:21 Discharge instructions given to patient, Instructed on discharge instructions, follow up and referral plans. Demonstrated understanding of instructions, follow-up care. 17:21 Patient left the ED. aj1 Signatures: Ce Birch, MULTIMEDIA ARTIST-C MULTIMEDIA ARTIST-CkKimber Oden RN RN aj1 Merle Caldwell Tara, RN RN tw2 Sebastian Valdes jp3
--- NOTE | 2019-03-20 17:01 | EDPHYS ---
Physician Documentation [facility] Name: Danny Leroy Jr Age: 59 yrs Sex: Male : 1960 Arrival Date: 03/20/2019 Time: 16:02 Bed 25 Private MD: ED Physician Christopher Corcoarn HPI: 03/20 16:47 This 59 yrs old Male presents to ER via Ambulatory with complaints of Flu kb Symptoms. 16:47 The patient or guardian reports cough, that is intermittent, described as moderate, kb with no sputum, flu symptoms, low-grade fever, myalgias. Onset: The symptoms/episode began/occurred 3 day(s) ago. Severity of symptoms: At their worst the symptoms were moderate, in the emergency department the symptoms are unchanged. Modifying factors: The symptoms are alleviated by nothing, the symptoms are aggravated by nothing. Associated signs and symptoms: Pertinent positives: fever. The patient has not experienced similar symptoms in the past. The patient has not recently seen a physician. Pt reports his sister was here in the ICU and told him she had the flu. States he has been having fever, chills, and cough for 3-4 days. . 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 - Social history:: Smoking status: Patient/guardian denies using tobacco, Smoking status: Patient uses tobacco products, "i quit 2 days ago, i was smoking 0.5 pk/day". - Ebola Screening: : Patient denies travel to an Ebola-affected area in the 21 days before illness onset. ROS: 16:46 ENT: Negative for injury, pain, and discharge, Neck: Negative for injury, pain, and kb swelling, Cardiovascular: Negative for chest pain, palpitations, and edema, Abdomen/GI: Negative for abdominal pain, nausea, vomiting, diarrhea, and constipation, Back: Negative for injury and pain, MS/Extremity: Negative for injury and deformity, Skin: Negative for injury, rash, and discoloration, Neuro: Negative for headache, weakness, numbness, tingling, and seizure. 16:46 Constitutional: Positive for body aches, chills, fatigue, fever, malaise. 16:46 Respiratory: Positive for cough. Exam: 16:46 Constitutional: This is a well developed, well nourished patient who is awake, alert, kb and in no acute distress. Head/Face: Normocephalic, atraumatic. ENT: Nares patent. No nasal discharge, no septal abnormalities noted. Tympanic membranes are normal and external auditory canals are clear. Oropharynx with no redness, swelling, or masses, exudates, or evidence of obstruction, uvula midline. Mucous membranes moist. Neck: Trachea midline, no thyromegaly or masses palpated, and no cervical lymphadenopathy. Supple, full range of motion without nuchal rigidity, or vertebral point tenderness. No Meningismus. Chest/axilla: Normal chest wall appearance and motion. Nontender with no deformity. No lesions are appreciated. Cardiovascular: Regular rate and rhythm with a normal S1 and S2. No gallops, murmurs, or rubs. Normal PMI, no JVD. No pulse deficits. Abdomen/GI: Soft, non-tender, with normal bowel sounds. No distension or tympany. No guarding or rebound. No evidence of tenderness throughout. Back: No spinal tenderness. No costovertebral tenderness. Full range of motion. Skin: Warm, dry with normal turgor. Normal color with no rashes, no lesions, and no evidence of cellulitis. MS/ Extremity: Pulses equal, no cyanosis. Neurovascular intact. Full, normal range of motion. Neuro: Awake and alert, GCS 15, oriented to person, place, time, and situation. Cranial nerves II-XII grossly intact. Motor strength 5/5 in all extremities. Sensory grossly intact. Cerebellar exam normal. Normal gait. 16:46 Respiratory: the patient does not display signs of respiratory distress, Respirations: normal, Breath sounds: decreased breath sounds, that are mild, are located in both bases. Vital Signs: 16:11 BP 105 / 82; Pulse 88; Resp 18; Temp 98.5(TE); Pulse Ox 99% on R/A; Weight 74.84 kg; tw2 Height 5 ft. 7 in. (170.18 cm); Pain 7/10; 17:20 BP 112 / 65; Pulse 82; Resp 18; Pulse Ox 99% on R/A; aj1 16:11 Body Mass Index 25.84 (74.84 kg, 170.18 cm) tw2 MDM: 16:18 Patient medically screened. kb 16:45 Data reviewed: vital signs, nurses notes. Data interpreted: Pulse oximetry: on room air kb is 99 %. Interpretation: normal. 16:59 Counseling: I had a detailed discussion with the patient and/or guardian regarding: the kb historical points, exam findings, and any diagnostic results supporting the discharge/admit diagnosis, lab results, radiology results, the need for outpatient follow up, a family practitioner, to return to the emergency department if symptoms worsen or persist or if there are any questions or concerns that arise at home. 03/20 16:18 Order name: Flu; Complete Time: 16:54 kb 03/20 16:18 Order name: Chest Pa And Lat (2 Views) XRAY kb 03/20 17:19 Order name: RAD; Complete Time: 17:20 EDMS Administered Medications: 16:51 Drug: AtroVENT Aerosol 0.5 mg Route: Inhalation; aj1 16:51 Drug: Albuterol 2.5 mg Route: Inhalation; aj1 Disposition: 03/21 07:03 Co-signature as Attending Physician, Christopher Corcoran MD I agree with the assessment and michael plan of care. Disposition: 03/20/19 16:59 Discharged to Home. Impression: Influenza due to certain identified influenza viruses. - Condition is Stable. - Discharge Instructions: Influenza, Adult, [id number]. - Prescriptions for Tessalon Perles 100 mg Oral Capsule - take 1 capsule by ORAL route every 8 hours As needed; 15 capsule. - Medication Reconciliation Form, Thank You Letter, Antibiotic Education, Prescription Opioid Use form. - Follow up: Emergency Department; When: As needed; Reason: Worsening of condition. Follow up: Private Physician; When: 2 - 3 days; Reason: Recheck today's complaints, Continuance of care, Re-evaluation by your physician. Signatures: Dispatcher [employer] EDMS Ce Birch FNP-C FNP-Ckb Johnson, Angela, RN RN aj1 Christopher Corcoran MD MD cha Wise, Tara RN RN tw2 Corrections: (The following items were deleted from the chart) 03/20 17:21 16:59 03/20/2019 16:59 Discharged to Home. Impression: Influenza due to certain aj1 identified influenza viruses. Condition is Stable. Forms are Medication Reconciliation Form, Thank You Letter, Antibiotic Education, Prescription Opioid Use. Follow up: Emergency Department; When: As needed; Reason: Worsening of condition. Follow up: Private Physician; When: 2 - 3 days; Reason: Recheck today's complaints, Continuance of care, Re-evaluation by your physician. kb
[2019-03-20 17:40] VITALS: TEMP 98.5; O2SAT 99
[2019-03-20 17:41] VITALS: BP 112/65
== END 2019-03-20 17:21 | disposition home or self-care (01) ==
LOC: ER 16:00
DX: J10.1 Influenza due to other identified influenza virus with other respiratory manifestations (principal); I10 Essential (primary) hypertension
CPT/HCPCS: 71046; 87804; 99284

== ENCOUNTER 2021-01-16 22:10 | Emergency (ER) | payer OTHER ==
[2021-01-16] MEDS ORDERED: ACETAMINOPHEN 325 MG TABLET ONE (23:08)
[2021-01-16] MEDS ORDERED: IBUPROFEN 400 MG TAB ONE (23:09)
--- NOTE | 2021-01-16 23:44 | EDPHYS ---
Physician Documentation [facility] Name: Danny Leroy Jr Age: 60 yrs Sex: Male : 1960 Arrival Date: 01/16/2021 Time: 22:12 Bed 15 Private MD: ED Physician Christopher Corcoran HPI: 01/16 22:35 This 60 yrs old Male presents to ER via Ambulatory with complaints of Wrist cp Injury. 22:35 The patient or guardian reports injury, pain, swelling, tenderness. The complaints cp affect the right wrist diffusely. Context: resulted from a fall, on an outstretched hand. Onset: The symptoms/episode began/occurred today. Associated signs and symptoms: Pertinent negatives: cyanosis distally, numbness distally. 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 - Social history:: Smoking status: Patient/guardian denies using tobacco, Patient/guardian denies using alcohol, street drugs. ROS: 22:40 MS/extremity: Positive for injury or acute deformity, pain, of the right wrist, cp Negative for decreased range of motion, paresthesias. 22:40 Constitutional: Negative for chills, fever. cp 22:40 Cardiovascular: Negative for chest pain. 22:40 Respiratory: Negative for cough, shortness of breath, wheezing. 22:40 Abdomen/GI: Negative for abdominal pain, nausea, vomiting, and diarrhea. 22:40 Skin: Negative for rash. 22:40 Neuro: Negative for headache. 22:40 All other systems are negative. Exam: 22:45 Constitutional: The patient appears in no acute distress, alert, awake, well developed, cp well nourished. 22:45 Head/Face: Normocephalic, atraumatic. cp 22:45 Cardiovascular: Rate: normal, Pulses: Pulses are 2+ in right radial artery. 22:45 Respiratory: the patient does not display signs of respiratory distress, Respirations: normal, no use of accessory muscles, no retractions, labored breathing, is not present. 22:45 Musculoskeletal/extremity: Extremities: grossly normal except: noted in the right wrist: pain, swelling, tenderness, There is no evidence of decreased ROM, gross deformity, ROM: limited passive range of motion due to pain, in the right wrist, the right hand Sensation intact. overlying skin of right wrist and right hand intact. 22:45 Neuro: Orientation: to person, place \\T\\ time. Mentation: is normal. Vital Signs: 22:16 BP 170 / 99; Pulse 99; Resp 18; Temp 98.5(O); Pulse Ox 97% on R/A; Weight 70.31 kg; df1 Height 5 ft. 7 in. (170.18 cm); Pain 8/10; 23:55 BP 149 / 86; Pulse 84; Resp 17; Pulse Ox 99% ; Pain 5/10; dc2 22:16 Body Mass Index 24.28 (70.31 kg, 170.18 cm) df1 Procedures: 01/17 00:20 Splinting: Splint applied to right wrist using Orthoglass splint, sugar tong type. cp applied by tech. Examined by me, post splint application: neurovascular intact, Patient tolerated well. MDM: 01/16 22:31 Patient medically screened. cp 23:00 Differential diagnosis: dislocation, open fracture, closed fracture, sprain. cp 23:35 Test interpretation: by ED physician or midlevel provider: xrays of right wrist show cp non-displaced fracture of left distal radius and left ulna styloid fracture. 23:43 Data reviewed: vital signs, nurses notes, radiologic studies, plain films. cp 23:43 Test interpretation: by ED physician or midlevel provider: plain radiologic studies. cp Counseling: I had a detailed discussion with the patient and/or guardian regarding: the historical points, exam findings, and any diagnostic results supporting the discharge/admit diagnosis, radiology results, the need for outpatient follow up, for definitive care, a orthopedic surgeon, to return to the emergency department if symptoms worsen or persist or if there are any questions or concerns that arise at home. Response to treatment: the patient's symptoms have markedly improved after treatment, and as a result, I will discharge patient. 01/16 22:22 Order name: XRAY Wrist RIGHT 3 view df1 01/16 23:33 Order name: Sugar Tong Forearm Splint; Complete Time: 00:10 cp 01/16 23:41 Order name: Sling; Complete Time: 00:10 cp Administered Medications: 23:11 Drug: Ibuprofen 800 mg Route: PO; dc2 23:54 Follow up: Response: Pain is decreased dc2 23:11 Drug: Tylenol 650 mg Route: PO; dc2 23:54 Follow up: Response: Pain is decreased dc2 Disposition: 01/17 00:30 Chart complete. cp 11:23 Co-signature as Attending Physician, Christopher Corcoran MD I agree with the assessment and [facility] plan of care. Disposition Summary: 01/16/21 23:44 Discharge Ordered Location: Home cp Problem: new cp Symptoms: have improved cp Condition: Stable cp Diagnosis - Displaced fracture of right ulna styloid process cp - Nondisplaced Right Distal Radius Fracture cp Followup: cp - With: Joel Rosa MD - When: 2 - 3 days - Reason: Recheck today's complaints Discharge Instructions: - Discharge Summary Sheet cp - Wrist Fracture Treated With Immobilization cp Forms: - Medication Reconciliation Form cp - Thank You Letter cp - Antibiotic Education cp - Prescription Opioid Use cp Prescriptions: - Ibuprofen 800 mg Oral Tablet - take 1 tablet by ORAL route every 8 hours As needed take with food; 30 tablet; cp Refills: 0, Product Selection Permitted - Ultracet 37.5-325 mg Oral Tablet - take 1 tablet by ORAL route every 6 hours - for up to 5 days; do not exceed 8 cp tablets per day.; 20 tablet; Refills: 0, Product Selection Permitted Signatures: Dispatcher [employer] Christopher Hill MD MD cha Page, Corey, PA PA cp Furlich, Dawn df1 Roxanne Moe RN RN dc2 Corrections: (The following items were deleted from the chart) 01/16 22:19 22:18 Home Meds: "unknown blood pressure medicine"; df1 df1 22:19 22:18 Home Meds: gabapentin Oral; df1 df1 22:19 22:18 Home Meds: None; df1 df1
--- NOTE | 2021-01-16 23:44 | ER ---
Nurse's Notes [facility] Name: Danny Leroy Jr Age: 60 yrs Sex: Male : 1960 Arrival Date: 01/16/2021 Time: 22:12 Bed 15 Private MD: Diagnosis: Displaced fracture of right ulna styloid process;Nondisplaced Right Distal Radius Fracture Presentation: 01/16 22:16 Chief complaint: Patient states: right wrist injury 1000 today. Coronavirus screen: df1 Vaccine status: Patient reports being unvaccinated. Client denies travel out of the [place] in the last 14 days. At this time, the client does not indicate any symptoms associated with coronavirus-19. Ebola Screen: Patient negative for fever greater than or equal to 101.5 degrees Fahrenheit, and additional compatible Ebola Virus Disease symptoms Patient denies exposure to infectious person. Patient denies travel to an Ebola-affected area in the 21 days before illness onset. Initial Sepsis Screen: Does the patient meet any 2 criteria? No. Patient's initial sepsis screen is negative. Does the patient have a suspected source of infection? No. Patient's initial sepsis screen is negative. Risk Assessment: Do you want to hurt yourself or someone else? Patient reports no desire to harm self or others. Onset of symptoms was January 16, 2021 at 10:00. 22:16 Method Of Arrival: Ambulatory df1 22:16 Acuity: MARSHA 4 df1 22:19 Note Pt states right wrist bent backwards while catching diable child at 1000 today. df1 Swelling and pain increased today. Limited ROM to right wrist. MSP's intact. No pain meds taken. Triage Assessment: 22:35 Injury Description: Crush injury sustained to right hand bent back when holding child. 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 - Social history:: Smoking status: Patient/guardian denies using tobacco, Patient/guardian denies using alcohol, street drugs. Screenin:35 Abuse screen: Denies threats or abuse. Denies injuries from another. Nutritional dc2 screening: No deficits noted. Tuberculosis screening: No symptoms or risk factors identified. Never had TB. Fall Risk None identified. No fall in past 12 months (0 pts). Assessment: 22:35 General: Appears in no apparent distress. uncomfortable, Behavior is calm, cooperative. dc2 Pain: Complains of pain in right hand right wrist. Neuro: No deficits noted. Cardiovascular: No deficits noted. Denies chest pain, shortness of breath, Heart tones present. Respiratory: No deficits noted. Airway is patent Breath sounds are clear bilaterally. GI: No deficits noted. No signs and/or symptoms were reported involving the gastrointestinal system. Abdomen is non-distended, Bowel sounds present X 4 quads. : No deficits noted. No signs and/or symptoms were reported regarding the genitourinary system. Derm: No deficits noted. No signs and/or symptoms reported regarding the dermatologic system. Musculoskeletal: Capillary refill < 3 seconds, is brisk, fingers. Range of motion: limited in right hand and wrist, is swollen with limited rom due to pain / injury. 23:52 Reassessment: Discharge on hold due to waiting on splint to be applied by AZAM Hernandez. dc2 Is bringing someone to the floor for admittance. Vital Signs: 22:16 BP 170 / 99; Pulse 99; Resp 18; Temp 98.5(O); Pulse Ox 97% on R/A; Weight 70.31 kg; df1 Height 5 ft. 7 in. (170.18 cm); Pain 8/10; 23:55 BP 149 / 86; Pulse 84; Resp 17; Pulse Ox 99% ; Pain 5/10; dc2 22:16 Body Mass Index 24.28 (70.31 kg, 170.18 cm) df1 ED Course: 22:12 Patient arrived in ED. bp1 22:18 Triage completed. df1 22:23 Christopher Roman PA is PHCP. cp 22:23 Christopher Corcoran MD is Attending Physician. cp 22:24 Roxanne Moe RN is Primary Nurse. dc2 22:30 Nurse Practitioner and/or Physician Motor [employer] Generator Brush Maker to see patient. dc2 22:35 Patient has correct armband on for positive identification. Bed in low position. Call dc2 light in reach. Side rails up X 1. Pulse ox on. NIBP on. Door closed. Lights dimmed. Ice pack to injury. Elevated right on pillow and blankets. 22:51 X-ray(s) taken. dc2 23:05 XRAY Wrist RIGHT 3 view In Process Unspecified. EDMS 23:42 Joel Rosa MD is Referral Physician. cp 11 00:11 No provider procedures requiring assistance completed. dc2 00:11 Orthoglass splint: Sugar tong splint applied on right arm. Sling applied to right arm. ds4 00:11 Splint/sling/ice applied as appropriate. Patient by AZAM Hernandez. dc2 00:12 Patient did not have IV access during this emergency room visit. dc2 Administered Medications: 01/16 23:11 Drug: Ibuprofen 800 mg Route: PO; dc2 23:54 Follow up: Response: Pain is decreased dc2 23:11 Drug: Tylenol 650 mg Route: PO; dc2 23:54 Follow up: Response: Pain is decreased dc2 Outcome: 23:44 Discharge ordered by MD. cp 01/17 00:12 Discharged to home ambulatory. dc2 Condition: stable Discharge instructions given to patient, Instructed on discharge instructions, follow up and referral plans. Demonstrated understanding of instructions, follow-up care, medications, Prescriptions given X 2. 00:23 Patient left the ED. dc2 Signatures: Dispatcher [employer] EDMN David Clarke ds4 Christopher Roman PA PA cp [place]ia[place], Brittany bp1 Furlich, Dawn df1 Roxanne Moe RN RN dc2 Corrections: (The following items were deleted from the chart) 01/16 22:19 22:18 Home Meds: "unknown blood pressure medicine"; df1 df1 22:19 22:18 Home Meds: gabapentin Oral; df1 df1 22:19 22:18 Home Meds: None; df1 df1
[2021-01-17 01:48] VITALS: BP 149/86; O2SAT 99
[2021-01-17 01:49] VITALS: TEMP 98.5
--- NOTE | 2021-01-17 08:34 | RAD REPORT ---
EXAM DESCRIPTION: RAD - Wrist Right 3 View - 01/16/2021 11:05 pm CLINICAL HISTORY: PAIN Pain COMPARISON: Wrist Right 3 View dated 06/20/2018; Wrist Right 2 View dated 03/03/2012 FINDINGS: Sclerosis is seen along the distal radius compatible with healed fracture. Mild radiocarpa l osteoarthritis. Mild soft tissue swelling is present without acute fracture evident. Ununited ulna r styloid avulsion noted.
--- OUTSIDE RECORDS SUMMARY | 2021-01-25 12:03 | XMS REPORT | Continuity of Care Document ---
:1960 Author Organization [facility] t Address [address] [place] [address] Care Team Providers Name Role Phone Raymundo SCHERER Primary Care Physician Unavailable Mana BRICE, L Attending Clinician Quinn ADAIR Attending Clinician Unavailable Payers Payer Name Policy Type Policy Number Effective Date Expiration Date S ource Problems Condition Condition Condition Status Onset Resolution Last Treating Co mments Source Name Details Category Date Date Treatment Clinician Date Bilateral Bilateral Disease Active 2019 Uni vers hearing hearing 3-24 ity of loss, loss, 00:00: [place] unspecifie unspecifie 00 Me dical d hearing d hearing Bran ch loss type loss type Tinea Tinea Disease Active 2019-0 Univers pedis of pedis of 3-24 [place] of [place] Bilateral Bilateral Disease Active 2019-0 Uni vers foot pain foot pain 3-24 ity of 00:00: [address] Hyperkalem Hyperkalem Disease Active 2019-0 U marie ia ia 2-15 ity of 00:00: [address] Rheumatoid Rheumatoid Disease Active 2019-0 U marie factor factor 2-15 ity of positive positive 00:00: [address] ELENA ELENA Disease Active 2019-0 Univers positive positive 2-15 ity of 00:00: [address] Polyarthra Polyarthra Disease Active 2019-0 U marie lgia lgia 2-15 ity of 00:00: [place] 00 Medical Branch Elevated Elevated Disease Active Unive rs hematocrit hematocrit 2-15 it y of 00:00: [place] [id number] Medical Branch Elevated Elevated Disease Active Unive rs serum serum 2-15 ity of protein protein 00:00: [place] level level 00 Medical Branch History of History of Disease Active U nivers hepatitis hepatitis 2-15 ity of C C 00:00: [place] [id number] Medical Branch Anxiety Anxiety Disease Active Univers 2-15 ity of 00:00: [place] [id number] Medical Branch Chronic Chronic Disease Active Univers pain pain 2-15 ity of 00:00: [place] [id number] Medical Branch Positive Positive Disease Active Unive rs anti-CCP anti-CCP 2-15 ity of test test 00:00: [place] [id number] Medical Todd Osteoarthr Osteoarthr Disease Active Overview : Univers itis, itis, 2-13 Formattin ity of multiple multiple 00:00: g of this Carlos as sites sites 00 note Medical might be Branch different from the original. Lumbar spine, right hip Essential Essential Disease Active Uni vers hypertensi hypertensi 1-15 it y of on on 00:00: [place] [id number] Medical Branch Subclinica Subclinica Disease Active U nivers l l 1-15 ity of hypothyroi [place]ro[place] dis[place] dism 00 [facility] [place] Degenerati Degenerati Disease Active U nivers ve joint ve joint ity of disease [place] low back low back Medica l Branch Allergies, Adverse Reactions, Alerts Allergy Allergy Status Severity Reaction(s) Onset Inactive Treating Comm ents Source Name Type Date Date Clinician NO KNOWN Drug Active Univers ALLERGIE Class ity of S [facility] Social History Social Habit Start Date Stop Date Quantity Comments Source Exposure to Not sure University of SARS-CoV-2 [place] Medical (event) Branch Alcohol intake 2018-07-12 2018-07-12 Current University of 00:00:00 00:00:00 non-drinker of [facility] alcohol Branch (finding) Tobacco use and 2018-04-22 2018-04-22 Never used Universit y of exposure 00:00:00 00:00:00 [facility] History of 2017-04-22 Smoker University of tobacco use 00:00:00 [facility] Sex [birth year] Universit y of 00:00:00 00:00:00 [facility] Smoking Status Start Date Stop Date Source Former smoker 2018-04-22 00:00:00 2018-04-22 00:00:00 [facility] Medications Ordered Filled Start Stop Current Ordering Indication Dosage Frequency Signature Comments Components Source Medication Medication Date Date Medication? Clinician (SIG) Name Name gabapentin 2018-03 Yes [id number] TAKE 2 Univers 400 mg 0-23 CAPSULES ity of capsule 00:00: BY MOUTH 00 AT BEDTIME [facility] Branch METOPROLOL Yes [id number] TAKE 1 U nivers SUCCINATE 9-04 TABLET BY ity o f XL 50 mg 24 00:00: MOUTH [place] hr tablet 00 EVERY DAY Medic al Branch busPIRone Yes [id number] 10mg Take 1 Un benedicto 10 mg 8-08 tablet by ity of tablet 00:00: mouth 00 (two) [facility] times Todd daily. FELODIPINE Yes [id number] TAKE 1 U nivers 5 mg 24 hr 7-23 TABLET BY ity of tablet 00:00: MOUTH [place] 00 EVERY DAY [facility] Branch LEVOTHYROXI Yes TAKE 1 Univ ers NE 75 mcg 4-12 TABLET BY ity o f tablet 00:00: MOUTH [place] 00 EVERY DAY Medical IN THE Branch MORNING Felodipine Felodipine Yes Ginny take [address] [facility] [place] tablet by [facility] - mouth Memoria every day [facility] ent Clinics Levothyroxi Levothyroxi Yes Ginny take [address] [facility] ne Sodium ne Sodium [place] tablet by [facility] - mouth Memoria every l morning [facility] ent Clinics Gabapentin Gabapentin Yes Ginny take [address] [facility] [place] capsules [facility] - by mouth Memoria at bedtime [facility] ent [facility] Metoprolol Metoprolol Yes Ginny take [address] [facility] [address] Succinate Succinate [place] tablet by [facility] - ER ER mouth Memoria every day [facility] ent Clinics Procedures This patient has no known procedures. Encounters Start End Encounter Admission Attending Care Care Encounter Source Date/Time Date/Time Type Type Clinicians Facility Department ID 2021-01-20 2021-01-20 Office [facility] [place] [id number] [facility] 15:15:00 15:30:00 Visit [facility] [id number] May [id number] Carlos as BOSSMAN?BLEA [id number] Me lopez [address] MEDICAL OFFICE BUILDING 2021-01-20 2021-01-20 Outpatient Isabela ADAIR [facility] [id number] Univers 15:15:00 15:15:00 [facility] 2020-03-19 2020-03-19 Outpatient [facility] [id number] [facility] 2019-11-07 2019-11-07 [facility] [id number] [facility] 14:40:00 14:40:00 t [facility] Medicine l Medicine Outpati ent Clinics 2019-10-03 2019-10-03 [facility] [id number] [facility] 15:00:00 15:00:00 t [facility] Medicine l Medicine Outpati ent Clinics 2019-10-02 2019-10-02 [facility] [id number] 11:03:00 11:03:00 t [facility] Medicine l Medicine Outpati ent Clinics 2019-08-08 2019-08-08 [facility] [id number] [facility] 15:00:00 15:00:00 [facility] Medicine l Medicine Outpati ent Clinics 2019-04-17 2019-04-17 [facility] [id number] [facility] [address] 16[facility]40:00 16:40:00 t [facility] Medicine l Medicine Outpati ent Clinics 2019-02-23 2019-02-23 [facility] [id number] 09:25:00 09:25:00 t Specialty/U Dariela kes - Specialty rology Memori a /Urology Clinic l Clinic Outpati ent Clinics 2019-02-22 2019-02-22 [facility] [id number] 09:15:00 09:15:00 t Specialty/U Dariela kes - Specialty rology Memori a /Urology Clinic l Clinic Outpati ent Clinics 2019-02-13 2019-02-13 [facility] [id number] 13:48:00 13:48:00 [facility] 2019-02-13 2019-02-13 [facility] [id number] 10:47:00 10:47:00 t [facility] 2019-02-07 2019-02-07 [facility] [id number] [address] 15:00:00 15:00:00 t [facility] Outpati ent Clinics 2019-02-03 2019-02-03 [facility] [id number] 10:20:00 10:20:00 t [facility] 2019-01-25 2019-01-25 [facility] [id number] 12:05:00 12:05:00 t [facility] 2018-12-19 2018-12-19 [facility] [id number] 14:25:00 14:25:[address] [facility] ent Clinics 2018-12-13 2018-12-13 [facility] [id number] 16:38:00 16:38:00 [facility] ent Clinics 2018-12-05 2018-12-05 [facility] [id number] 09:30:00 09:30:00 t [facility] ent Clinics 2018-11-28 2018-11-28 [facility] [id number] 16:36:00 16:36:00 t [facility] ent Clinics 2018-11-10 2018-11-10 [facility] [id number] 14:00:00 14:00:00 [facility] ent Clinics 2018-11-08 2018-11-08 [facility] [id number] 11:00:00 11:00:00 t [facility] 2018-09-29 2018-09-29 [facility] [id number] 13:30:00 13:30:00 t [facility] 2018-09-01 2018-09-01 [facility] [id number] [facility] 14:00:00 14:00:00 t [facility] ent Clinics 2018-07-28 2018-07-28 [facility] [id number] 10:01:00 10:01:00 t [facility] 2018-06-30 2018-06-30 [facility] [id number] 08:30:00 08:30:00 t [facility] ent [facility] Results This patient has no known results.
== END 2021-01-17 00:23 | disposition home or self-care (01) ==
LOC: ER 22:10
PROC: 2W3CX1Z Immobilization of Right Lower Arm using Splint (ICD-10-PCS; principal; 2021-01-17)
DX: S52.611A Displaced fracture of right ulna styloid process, initial encounter for closed fracture (principal); S52.501A Unspecified fracture of the lower end of right radius, initial encounter for closed fracture; W19.XXXA Unspecified fall, initial encounter; I10 Essential (primary) hypertension
CPT/HCPCS: 99284

== ENCOUNTER 2021-10-09 08:47 | Emergency (ER) | payer OTHER ==
[2021-10-09] MEDS ORDERED: NA CHLORIDE 0.9% 1,000 ML ONE (09:57)
[2021-10-09] MEDS ORDERED: MORPHINE 4 MG/ML SYR ONE (09:57)
[2021-10-09] MEDS ORDERED: ONDANSETRON 4 MG/2 ML VIAL ONE (09:57)
[2021-10-09 10:01] LABS: Absolute Lymphocytes (CBC) 1.3 K/uL (0.7-4.9); Hematocrit 42.6 % (39.6-49.0); Lymphocytes % 13.2 % (15.3-44.8); MCV 90.8 fL (80-100)
[2021-10-09 10:13] LABS: Potassium 4.1 mmol/L (3.5-5.1)
[2021-10-09 10:14] LABS: Albumin 4.1 g/dL (3.4-5.0); Bilirubin Total 0.3 mg/dL (0.2-1.0)
--- NOTE | 2021-10-09 10:59 | RAD REPORT ---
EXAM DESCRIPTION: CTAbdomen Pelvis W Contrast - 10/09/2021 10:45 am CLINICAL HISTORY: Abdominal pain, acute, nonlocalized COMPARISON: No comparisons TECHNIQUE: CT of the abdomen and pelvis was performed. All CT scans are performed using dose optimization technique as appropriate and may include automated exposure control or mA/KV adjustment according to patient size. FINDINGS: Lower chest: Moderate circumferential thickened distal esophagus. Liver: Mild intrahepatic biliary ductal dilatation. No focal liver mass. Biliary: The extrahepatic common bile duct is normal in caliber. The gallbladder is unremarkable. Stomach: No significant focal abnormality. Duodenum: No significant focal abnormality. Pancreas: No significant abnormality. Spleen: No significant abnormality. Adrenal: No suspicious lesions. Kidney/ureter: No hydronephrosis. Bilateral renal scarring. Too small to characterize and/or benign a ppearing renal lesions are noted. 2 mm stone in the lower pole the left kidney. Retroperitoneum: No retroperitoneal adenopathy. Vascular: No aneurysm. Bowel: No significant focal abnormality. Normal appendix. Peritoneum: No ascites or free air. Bladder: Grossly unremarkable. Reproductive: No adnexal masses. Bones: No acute fracture. Other: n/a IMPRESSION: No acute intra-abdominal or pelvic finding. Moderately thickened distal esophagus suggesting esophagitis. Endoscopy could better evaluate. Normal appendix. Nonobstructive left nephrolithiasis.
[2021-10-09] MEDS ORDERED: PANTOPRAZOLE 40 MG INJ ONE (11:35)
[2021-10-09 12:01] LABS: Urine Blood Negative (Negative); Urine Glucose Negative (Negative); Urine Protein Negative (Negative); Urine Specific Gravity 1.025 (1.005-1.030); Urine pH 5.5 (5.0-7.0)
[2021-10-09 12:31] LABS: Urine Bacteria <20 /HPF (<20); Urine RBC <5 /HPF (None Seen)
--- NOTE | 2021-10-09 13:13 | ER ---
Nurse's Notes [facility] Name: Danny Leroy Jr Age: 61 yrs Sex: Male : 1960 Arrival Date: 10/09/2021 Time: 08:50 Bed 14 Private MD: Ginny Chopra Diagnosis: Abdominal pain, unspecified Presentation: 10/09 08:53 Chief complaint: Patient states: mid abdominal pain since yesterday and also has a sore iw throat , also vomited three times. Coronavirus screen: Client presents with at least one sign or symptom that may indicate coronavirus-19. Ebola Screen: Patient negative for fever greater than or equal to 101.5 degrees Fahrenheit, and additional compatible Ebola Virus Disease symptoms Patient denies exposure to infectious person. Patient denies travel to an Ebola-affected area in the 21 days before illness onset. No symptoms or risks identified at this time. Initial Sepsis Screen: Does the patient meet any 2 criteria? No. Patient's initial sepsis screen is negative. Does the patient have a suspected source of infection? No. Patient's initial sepsis screen is negative. Risk Assessment: Do you want to hurt yourself or someone else? Patient reports no desire to harm self or others. Onset of symptoms was October 09, 2021. 08:53 Method Of Arrival: Ambulatory iw 08:53 Acuity: MARSHA 3 iw Triage Assessment: 09:00 General: Appears in no apparent distress. uncomfortable, Behavior is calm, cooperative, bp appropriate for age. Pain: Complains of pain in abdomen. EENT: No deficits noted. Neuro: No deficits noted. Cardiovascular: No deficits noted. Respiratory: No deficits noted. GI: Reports lower abdominal pain. : No signs and/or symptoms were reported regarding the genitourinary system. Derm: No deficits noted. Musculoskeletal: No deficits noted. 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 - Social history:: Smoking status: Patient denies any tobacco usage or history of. Screenin:00 Abuse screen: Denies threats or abuse. Denies injuries from another. Nutritional bp screening: No deficits noted. Tuberculosis screening: No symptoms or risk factors identified. Fall Risk None identified. Assessment: 09:00 General: SEE TRIAGE NOTE. bp 09:57 Reassessment: No changes from previously documented assessment. Patient and/or family bp updated on plan of care and expected duration. Pain level reassessed. 11:31 Reassessment: No changes from previously documented assessment. Patient and/or family bp updated on plan of care and expected duration. Pain level reassessed. PO CHALLENGE SUCCESSFUL. 13:06 Reassessment: No changes from previously documented assessment. Patient and/or family bp updated on plan of care and expected duration. Pain level reassessed. 13:33 Reassessment: PT D/C HOME AMBULATORY, DX WITH ABDOMINAL PAIN. bp Vital Signs: 08:53 BP 168 / 97; Pulse 96; Resp 16; Temp 97.0; Pulse Ox 100% ; Weight 71.67 kg; Height 5 iw ft. 7 in. (170.18 cm); Pain 6/10; 09:55 BP 147 / 105; Pulse 67; Resp 18; Pulse Ox 99% ; bp 11:30 BP 145 / 98; Pulse 62; Resp 16; Pulse Ox 100% ; bp 13:06 BP 145 / 95; Pulse 70; Resp 16; Pulse Ox 98% ; bp 08:53 Body Mass Index 24.75 (71.67 kg, 170.18 cm) iw ED Course: 08:50 Patient arrived in ED. am2 08:50 Ginny Chopra FNP-C is Private Physician. am2 08:52 [facility] cp 08:52 Christopher Corcoran MD is Attending Physician. cp 08:55 Triage completed. iw 08:56 Arm band placed on. iw 09:00 Patient has correct armband on for positive identification. Bed in low position. Call bp light in reach. Side rails up X2. 09:02 Andrew Jefferson, MONICA is Primary Nurse. bp 09:44 Accessed 20 GA 8CM R BRACHIAL ML. bp 10:47 CT Abd/Pelvis - IV Contrast Only In Process Unspecified. EDMS 13:01 Throat Culture Sent. bp 13:11 Martin Worthington MD is Referral Physician. cp 13:33 No provider procedures requiring assistance completed. IV discontinued, intact, bp bleeding controlled, No redness/swelling at site. Pressure dressing applied. Administered Medications: 09:54 Drug: morphine 4 mg Route: IVP; Infused Over: 4 mins; Site: right upper arm; bp 12:05 Follow up: Response: No adverse reaction; Pain is decreased bp 09:54 Drug: Zofran (Ondansetron) 4 mg Route: IVP; Site: right upper arm; bp 12:05 Follow up: Response: No adverse reaction bp 09:54 Drug: NS 0.9% 500 ml Route: IV; Rate: bolus; Site: right upper arm; bp 09:54 Drug: NS 0.9% 500 ml Route: IV; Rate: 125 ml/hr; Site: right upper arm; bp 11:30 Drug: ProTONIX (pantoprazole) 40 mg Route: IVP; Site: right upper arm; bp 13:01 Follow up: Response: No adverse reaction bp Medication: 09:00 VIS not applicable for this client. bp Outcome: 13:12 Discharge ordered by MD. cp 13:33 Discharged to home ambulatory, with family. bp 13:33 Condition: stable 13:33 Discharge instructions given to patient, Instructed on discharge instructions, follow up and referral plans. medication usage, Demonstrated understanding of instructions, follow-up care, medications, Prescriptions given X 2. 13:34 Patient left the ED. bp Signatures: Dispatcher [employer] EDMS Jeniffer Jurado RN RN iw Christopher Roman PA PA cp Moreno, Amanda am2 Andrew Jefferson RN RN bp Corrections: (The following items were deleted from the chart) 08:56 08:53 Pulse 96bpm; Resp 16bpm; Pulse Ox 100%; Temp 97.0F; 71.67 kg; Height 5 ft. 7 in.; iw BMI: 24.7; Pain 6/10; iw
--- NOTE | 2021-10-09 13:13 | EDPHYS ---
Physician Documentation [facility] Name: Danny Leroy Jr Age: 61 yrs Sex: Male : 1960 Arrival Date: 10/09/2021 Time: 08:50 Bed 14 Private MD: Ginny Chopra ED Physician Christopher Corcoran HPI: 10/09 10:00 This 61 yrs old Male presents to ER via Ambulatory with complaints of Abdominal Pain. cp 10:00 The patient presents with abdominal pain mid abdomen. Onset: The symptoms/episode cp began/occurred yesterday. The symptoms do not radiate. Associated signs and symptoms: Pertinent positives: nausea, vomiting, sore throat, Pertinent negatives: chest pain, constipation, diarrhea, fever, shortness of breath, testicular pain, cough. The symptoms are described as constant. Severity of pain: in the emergency department the pain is unchanged despite home interventions. 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 - Social history:: Smoking status: Patient denies any tobacco usage or history of. ROS: 10:05 Constitutional: Negative for body aches, chills, fever, poor PO intake. cp 10:05 Cardiovascular: Negative for chest pain, edema, palpitations. cp 10:05 Respiratory: Negative for cough, shortness of breath, wheezing. 10:05 Abdomen/GI: Positive for abdominal pain, nausea and vomiting, Negative for diarrhea, constipation, black/tarry stool, rectal bleeding. 10:05 Back: Negative for radiated pain. 10:05 : Negative for urinary symptoms, pelvic pain, testicular pain 10:05 Neuro: Negative for altered mental status, dizziness, headache, numbness, syncope, weakness. 10:05 All other systems are negative. Exam: 10:10 Constitutional: The patient appears in no acute distress, alert, awake, cp non-diaphoretic, non-toxic, well developed, well nourished, uncomfortable. 10:10 Head/Face: Normocephalic, atraumatic. cp 10:10 Eyes: Periorbital structures: appear normal, Conjunctiva: normal, no exudate, no injection, Sclera: no appreciated abnormality, Lids and lashes: appear normal, bilaterally. 10:10 ENT: External ear(s): are unremarkable, Nose: is normal, Mouth: Lips: moist, Oral mucosa: pink and intact, moist, Posterior pharynx: Airway: no evidence of obstruction, patent, Tonsils: no enlargement, no exudate, erythema, that is mild, exudate, is not appreciated. 10:10 Neck: ROM/movement: is normal, is supple, without pain, no range of motions limitations, no meningismus. 10:10 Chest/axilla: Inspection: normal, Palpation: is normal, no crepitus, no tenderness. 10:10 Cardiovascular: Rate: normal, Rhythm: regular, Edema: is not appreciated, JVD: is not appreciated. 10:10 Respiratory: the patient does not display signs of respiratory distress, Respirations: normal, no use of accessory muscles, no retractions, labored breathing, is not present, Breath sounds: are clear throughout, no decreased breath sounds, no stridor, no wheezing. 10:10 Abdomen/GI: Inspection: abdomen appears normal, Bowel sounds: active, all quadrants, Palpation: soft, in all quadrants, moderate abdominal tenderness, in all quadrants, rebound tenderness, is not appreciated, voluntary guarding, is elicited in all quadrants. 10:10 Back: pain, is absent, ROM is normal. 10:10 Skin: cellulitis, is not appreciated, no rash present. 10:10 Neuro: Orientation: to person, place \\T\\ time. Mentation: is normal. Vital Signs: 08:53 BP 168 / 97; Pulse 96; Resp 16; Temp 97.0; Pulse Ox 100% ; Weight 71.67 kg; Height 5 iw ft. 7 in. (170.18 cm); Pain 6/10; 09:55 BP 147 / 105; Pulse 67; Resp 18; Pulse Ox 99% ; bp 11:30 BP 145 / 98; Pulse 62; Resp 16; Pulse Ox 100% ; bp 13:06 BP 145 / 95; Pulse 70; Resp 16; Pulse Ox 98% ; bp 08:53 Body Mass Index 24.75 (71.67 kg, 170.18 cm) iw MDM: 09:00 Patient medically screened. cp 10:00 Differential diagnosis: cholecystitis, Cholelithiasis, diverticulitis, gastritis, cp non-specific abd pain, pancreatitis, Peptic Ulcer Disease, Perf. Duodenal Ulcer, Perf. Gastric Ulcer, Testicular Torsion, Ureterolithiasis, urinary tract infection. 13:12 Data reviewed: vital signs, nurses notes, lab test result(s), radiologic studies, CT cp scan. 13:12 Counseling: I had a detailed discussion with the patient and/or guardian regarding: the cp historical points, exam findings, and any diagnostic results supporting the discharge/admit diagnosis, the presence of at least one elevated blood pressure reading (>120/80) during this emergency department visit, lab results, radiology results, to return to the emergency department if symptoms worsen or persist or if there are any questions or concerns that arise at home. Response to treatment: the patient's symptoms have markedly improved after treatment, and as a result, I will discharge patient. Special discussion: Based on the patient's Hx, exam, and Dx evaluation, there is no indication for emergent surgery or inpatient Tx. It is understood by the patient/guardian that if the Sx's persist or worsen they need to return immediately for re-evaluation. 10/09 09:07 Order name: CBC with Diff; Complete Time: 10:45 bp 10/09 10:45 Interpretation: Normal except: MCV 90.8; SUJEY% 73.8; LYM% 13.2; EOSINOPHIL % 5.9; EOSA cp 0.6. 10/09 09:07 Order name: CMP; Complete Time: 10:45 bp 10/09 10:46 Interpretation: Normal except: CL 109; GLUC 149; BUN 26; CRE 1.38; GFR 59. cp 10/09 09:07 Order name: Lipase; Complete Time: 10:45 bp 10/09 09:08 Order name: COVID-19 SARS RT PCR (Document "Date of Onset" if Symptomatic); Complete bp Time: 10:45 10/09 09:08 Order name: Flu; Complete Time: 10:45 bp 10/09 09:08 Order name: Strep; Complete Time: 10:45 bp 10/09 09:07 Order name: CT Abd/Pelvis - IV Contrast Only; Complete Time: 11:09 bp 10/09 09:43 Order name: Urine Microscopic Only; Complete Time: 13:11 cp 10/09 09:46 Order name: Throat Culture EDMS 10/09 12:01 Order name: Urine Dipstick-Ancillary; Complete Time: 13:11 EDMS 10/09 09:07 Order name: IV Saline Lock; Complete Time: 09:44 bp 10/09 09:07 Order name: Labs collected and sent; Complete Time: 09:44 bp 10/09 09:43 Order name: Urine Dipstick-Ancillary (obtain specimen); Complete Time: 12:04 cp 10/09 11:11 Order name: PO challenge; Complete Time: 11:30 cp Administered Medications: 09:54 Drug: morphine 4 mg Route: IVP; Infused Over: 4 mins; Site: right upper arm; bp 12:05 Follow up: Response: No adverse reaction; Pain is decreased bp 09:54 Drug: Zofran (Ondansetron) 4 mg Route: IVP; Site: right upper arm; bp 12:05 Follow up: Response: No adverse reaction bp 09:54 Drug: NS 0.9% 500 ml Route: IV; Rate: bolus; Site: right upper arm; bp 09:54 Drug: NS 0.9% 500 ml Route: IV; Rate: 125 ml/hr; Site: right upper arm; bp 11:30 Drug: ProTONIX (pantoprazole) 40 mg Route: IVP; Site: right upper arm; bp 13:01 Follow up: Response: No adverse reaction bp Disposition Summary: 10/09/21 13:12 Discharge Ordered Location: Home cp Problem: new cp Symptoms: have improved cp Condition: Stable cp Diagnosis - Abdominal pain, unspecified cp Followup: cp - With: Martin Worthington MD - When: 2 - 3 days - Reason: Recheck today's complaints Discharge Instructions: - Discharge Summary Sheet iw - Abdominal Pain, Adult cp Forms: - Work release form iw - Medication Reconciliation Form cp - Thank You Letter cp - Antibiotic Education cp - Prescription Opioid Use cp Prescriptions: - Protonix 40 mg Oral Tablet - take 1 tablet by ORAL route once daily; 30 tablet; Refills: 0, Product cp Selection Permitted - Zofran 4 mg Oral Tablet - take 1 tablet by ORAL route every 12 hours As needed; 20 tablet; Refills: 0, cp Product Selection Permitted Signatures: Dispatcher [facility] Jeniffer Peralta RN RN iw Christopher Roman PA PA Andrew Yi RN RN bp
[2021-10-09 14:47] VITALS: TEMP 97
[2021-10-09 14:55] VITALS: BP 145/95; O2SAT 98
== END 2021-10-09 13:34 | disposition home or self-care (01) ==
LOC: ER 08:47
DX: R10.9 Unspecified abdominal pain (principal); R11.2 Nausea with vomiting, unspecified; I10 Essential (primary) hypertension; Z20.822 Contact with and (suspected) exposure to COVID-19
CPT/HCPCS: 87070; 85025; 36415; 87081; 83690; 80053; 87804 ×2; 74177; 96375; 96374; 99284; U0003; Q9967; C9113; J7030; J2405; 81003; 81015

== ENCOUNTER 2021-10-16 15:15 | Emergency (ER) | payer OTHER ==
--- OUTSIDE RECORDS SUMMARY | 2021-10-16 15:19 | XMS REPORT | Continuity of Care Document ---
:1960 Author Organization [facility] t Address [address] [place] [address] Care Team Providers Name Role Phone NIESHADELFINOWINNIE A Primary Care Physician Unavailable Ginny Chopra Attending Clinician Unavailable Beth Adair MD Attending Clinician BETH ADAIR Attending Clinician Unavailable Payers Payer Name [...] type loss type Tinea Tinea Disease Active 2019- Univers pedis of pedis of 3-24 ity of both [place] Bilateral Bilateral Disease Active 2019-0 Uni vers foot pain foot pain 3-24 ity of 00:00: [address] Branch Hyperkalem Hyperkalem Disease Active 2019-0 U nivers ia ia 2-15 ity of 00:00: [address] Rheumatoid Rheumatoid Disease Active 2019-0 U nivers factor factor 2-15 ity of positive positive 00:00: [address] ELENA ELENA Disease Active 2019-0 Univers positive positive 2-15 ity of 00:00: [address] Polyarthra Polyarthra Disease Active 2019-0 U nivers lgia lgia 2-15 ity of 00:00: [place] [facility] Elevated Elevated Disease Active Unive rs hematocrit hematocrit 2-15 it y of 00:00: [place] [id number] Medical Branch Elevated Elevated Disease Active Unive rs serum serum 2-15 ity of protein protein 00:00: [place] level level 00 Medical Branch History of History of Disease Active U nivers hepatitis hepatitis 2-15 ity of C C 00:00: [place] [facility] Anxiety Anxiety Disease Active Univers 2-15 ity of 00:00: [place] 00 Medical Branch Chronic Chronic Disease Active Univers pain pain 2-15 ity of 00:00: [place] [id number] Medical Branch Positive Positive Disease Active Unive rs anti-CCP anti-CCP 2-15 ity of test test 00:00: [place] [id number] Medical Branch Osteoarthr Osteoarthr Disease Active Overview : Univers itis, itis, 2-13 Formattin ity of multiple multiple 00:00: g of this [place] as sites sites 00 note Medical might be Branch different from the original. Lumbar spine, right hip Essential Essential Disease Active Uni vers hypertensi hypertensi 1-15 it y of on on 00:00: [place] [facility] Subclinica Subclinica Disease Active U [...] Active Univers ALLERGIE Class ity of S [facility] Social History Social Habit Start Date Stop Date Quantity Comments Source Exposure to Not sure [facility] SARS-CoV-2 [place] [facility] (event) Branch Alcohol intake 2018-07-12 2018-07-12 Current University of 00:00:00 00:00:00 non-drinker of [facility] alcohol Branch (finding) Tobacco use and 2018-04-22 2018-04-22 Never used Universit y of exposure 00:00:00 00:00:00 [facility] History of 2017-04-22 Smoker University of tobacco use 00:00:00 [facility] Sex Ass[birth year] At [birth year] Universit y of 00:00:00 00:00:00 [facility] Smoking Status Start Date Stop Date Source Former smoker 2018-04-22 00:00:00 2018-04-22 00:00:00 [facility] Medications Ordered Filled Start Stop Current Ordering Indication Dosage Frequency Signature Comments Components Source Medication Medication Date Date Medication? Clinician (SIG) Name Name gabapentin 2018-03 Yes [id number] TAKE 2 Univers 400 mg 0-23 CAPSULES ity of capsule 00:00: BY MOUTH AT BEDTIME Medical Branch METOPROLOL Yes [id number] TAKE 1 U nivers SUCCINATE 9-04 TABLET BY ity o f XL 50 mg 24 00:00: MOUTH [place] hr tablet 00 EVERY DAY Medic al Branch busPIRone Yes [id number] 10mg Take 1 Un benedicto 10 mg 8-08 tablet by ity of tablet 00:00: mouth 2 (two) Medical times Branch daily. FELODIPINE Yes [id number] TAKE 1 U nivers 5 mg 24 hr 7-23 TABLET BY ity of tablet 00:00: MOUTH 00 EVERY DAY Medical Branch LEVOTHYROXI Yes TAKE 1 Univ ers NE 75 mcg 4-12 TABLET BY ity o f tablet 00:00: MOUTH EVERY DAY Medical IN THE Branch MORNING Felodipine Felodipine Yes Ginny take 1 Common ER ER [place] tablet by Spirit mouth - [facility] every day [facility] Levothyroxi Levothyroxi Yes Ginny take 1 Common ne Sodium ne Sodium [place] tablet by Spirit mouth - [facility] every [facility] Gabapentin Gabapentin Yes Ginny take 2 Common [place] capsules Spirit by mouth - [facility] at bedtime [facility] Metoprolol Metoprolol Yes Ginny take 1 Common Succinate Succinate [place] tablet by Spirit ER ER mouth - [facility] every day [facility] Procedures This patient has no known procedures. Encounters Start End Encounter Admission Attending Care Care Encounter Source Date/Time Date/Time Type Type Clinicians Facility Department ID 2021-05-[address] [facility] [id number] Common 09:50:01 Ginny [facility] 2021-04-28 Outpatient [place], STLMLC STLMLC [id number] Common 09:38:00 Ginny [id number] [facility] 2021-04-09 Outpatient [place], STLMLC STLMLC [id number] Common 14:14:44 Ginny [id number] [facility] 2021-04-09 Outpatient [place], STLMLC STLMLC Common 13:39:12 Ginny [id number] [facility] 2021-04-09 Outpatient [place], STLMLC STLMLC Common 12:22:35 Ginny [id number] [facility] 2021-04-09 Outpatient [place], STLMLC STLMLC Common 11:39:47 Ginny [id number] [facility] 2021-04-09 Outpatient [place], STLMLC STLMLC Common 11:04:30 Ginny [id number] [facility] 2021-04-30 2021-04-30 ambulatory STLMLC STLMLC [id number] Common 00:00:00 00:00:00 [facility] 2021-04-15 2021-04-15 ambulatory STLMLC STLMLC [id number] Common 00:00:00 00:00:00 [facility] 2021-02-04 2021-02-04 ambulatory STLMLC STLMLC [id number] Common 00:00:00 00:00:00 [facility] 2021-01-30 2021-01-30 ambulatory STLMLC STLMLC [id number] Common 00:00:00 00:00:00 [facility] 2021-01-20 2021-01-20 [facility] [id number] Univers 15:15:00 15:30:00 Visit [facility] [id number] sofia y farrah BRADLEY [id number] [place] as BOSSMAN?BLEA [id number] [address] MEDICAL OFFICE BUILDING 2021-01-20 2021-01-20 [facility] [id number] [facility] 15:15:00 15:15:00 [facility] 2020-03-19 2020-03-19 Outpatient STLMLC STLMLC [id number] Common 00:00:00 00:00:00 [facility] 2019-11-07 2019-11-07 [facility] [id number] Common 14:40:00 14:40:[address] [facility] 2019-10-03 2019-10-03 Out[facility] [id number] Common 15:00:00 15:00:[address] [facility] 2019-10-02 2019-10-02 Out[facility] [id number] Common 11:03:00 11:03:00 t [facility] [address] [facility] 2019-08-08 2019-08-08 Outpatient [facility] [id number] Common 15:00:00 15:00:[address] [facility] 2019-04-17 2019-04-17 Outpatient [facility] [id number] Common 16:40:00 16:40:00 t [facility] [address] [facility] 2019-02-23 2019-02-23 Outpatient [facility] [id number] Common 09:25:00 09:25:00 t Specialty/U Sp faby Specialty rology - [facility] /Urology Clinic [facility] 2019-02-22 2019-02-22 Out[facility] [id number] Common 09:15:00 09:15:00 t Specialty/U Sp faby Specialty rology - [facility] Clinic [facility] 2019-02-13 2019-02-13 Out[facility] [id number] Common 13:48:00 13:48:[address] [facility] 2019-02-13 2019-02-13 Out[facility] [id number] Common 10:47:00 10:47:[address] [facility] 2019-02-07 2019-02-07 Out[facility] [id number] Common 15:00:00 15:00:[address] [facility] 2019-02-03 2019-02-03 Out[facility] [id number] Common 10:20:00 10:20:[address] [facility] 2019-01-25 2019-01-25 Outpatient [facility] [id number] Common 12:05:00 12:05:00 t [facility] [address] [facility] 2018-12-19 2018-12-19 Outpatient [facility] [id number] Common 14:25:00 14:25:00 [address] [place] [address] [facility] 2018-12-13 2018-12-13 Out[facility] [id number] Common 16:38:00 16:38:00 t [facility] 2018-12-05 2018-12-05 [facility] [id number] Common 09:30:00 09:30:00 t [facility] 2018-11-28 2018-11-28 Out[facility] [id number] Common 16:36:00 16:36:00 t [facility] 2018-11-10 2018-11-10 Out[facility] [id number] Common 14:00:00 14:00:00 t [facility] 2018-11-08 2018-11-08 Out[facility] [id number] Common 11:00:00 11:00:[address] [facility] 2018-09-29 2018-09-29 Out[facility] [id number] Common 13:30:00 13:30:00 t [facility] 2018-09-01 2018-09-01 Outpatient [place] [id number] Common 14:00:00 14:00:00 t [facility] 2018-07-28 2018-07-28 Outpatient [place] [id number] Common 10:01:00 10:01:00 t [facility] 2018-06-30 2018-06-30 Outpatient Clark [place] [id number] Common 08:30:00 08:30:00 t [facility] Results This patient has no known results.
[2021-10-16] MEDS ORDERED: HYDROCODONE/APAP 10/325 TAB ONE (17:38)
--- NOTE | 2021-10-16 18:05 | RAD REPORT ---
EXAM DESCRIPTION: RAD - Ankle Right 3 View - 10/16/2021 5:51 pm COMPARISON: None. FINDINGS: No fracture, dislocation or periosteal reaction. No joint effusion seen. No joint space na rrowing. Lateral and anterior soft tissue swelling is present. IMPRESSION: Soft tissue swelling with no right ankle fracture.
--- NOTE | 2021-10-16 18:06 | RAD REPORT ---
EXAM DESCRIPTION: RAD - Foot Right 3 View - 10/16/2021 5:51 pm CLINICAL HISTORY: PAIN COMPARISON: No comparisons FINDINGS: No fracture, dislocation or periosteal reaction. No acute destructive bone process. No sig nificant soft tissue swelling identifiable. No air or foreign body in the soft tissues. IMPRESSION: Negative right foot examination.
[2021-10-16] MEDS ORDERED: FAMOTIDINE 20 MG TAB ONE (18:11)
[2021-10-16] MEDS ORDERED: predniSONE 20 MG TAB ONE (18:11)
[2021-10-16] MEDS ORDERED: COLCHICINE 0.6 MG TAB ONE (18:11)
--- NOTE | 2021-10-16 18:33 | EDPHYS ---
Physician Documentation [facility] Name: Danny Leroy Jr Age: 61 yrs Sex: Male : 1960 Arrival Date: 10/16/2021 Time: 15:21 Bed 12 Private MD: ED Physician Kenton Michaud HPI: 10/16 18:34 This 61 yrs old Male presents to ER via Wheelchair with complaints of Foot Pain. kdr 18:35 The patient presents with decreased range of motion, an injury, pain, that is acute, kdr swelling, tenderness. The complaints affect the right ankle. Onset: The symptoms/episode began/occurred at an unknown time. Context: The problem was sustained at home, resulted from an unknown cause, The mechanism of injury is unknown. The patient can partially bear weight on the affected extremity. the patient is able to ambulate, with moderate difficulty. Associated signs and symptoms: The patient has no apparent associated signs or symptoms. Modifying factors: The symptoms are alleviated by nothing, the symptoms are aggravated by weight bearing, movement. Severity of symptoms: At their worst the symptoms were mild, moderate, just prior to arrival, in the emergency department the symptoms are unchanged. The patient has not experienced similar symptoms in the past. The patient has not recently seen a physician. 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 - Social history:: Smoking status: Patient denies any tobacco usage or history of. Patient/guardian denies using alcohol. ROS: 18:35 Constitutional: Negative for fever, chills, and weight loss, Eyes: Negative for injury, kdr pain, redness, and discharge, Neck: Negative for injury, pain, and swelling, Cardiovascular: Negative for chest pain, palpitations, and edema, Respiratory: Negative for shortness of breath, cough, wheezing, and pleuritic chest pain, Abdomen/GI: Negative for abdominal pain, nausea, vomiting, diarrhea, and constipation. 18:35 MS/extremity: Positive for injury or acute deformity, decreased range of motion, pain, swelling, tenderness, Negative for deformity, ecchymosis, erythema, laceration, tingling, warmth. Exam: 18:35 Constitutional: This is a well developed, well nourished patient who is awake, alert, kdr and in no acute distress. 18:35 Musculoskeletal/extremity: Extremities: grossly normal except: noted in the right ankle and anterior aspect of right ankle: decreased ROM, pain, swelling. Vital Signs: 15:24 BP 137 / 89; Resp 18; Temp 97.9(TE); Weight 72.57 kg; Height 5 ft. 7 in. (170.18 cm); ld1 Pain 8/10; 15:28 Pulse 95; Pulse Ox 97% on R/A; ld1 15:24 Body Mass Index 25.06 (72.57 kg, 170.18 cm) ld1 MDM: 18:32 Patient medically screened. kdr 18:35 Data reviewed: vital signs, nurses notes, lab test result(s), radiologic studies. kdr Counseling: I had a detailed discussion with the patient and/or guardian regarding: the historical points, exam findings, and any diagnostic results supporting the discharge/admit diagnosis, radiology results, the need for outpatient follow up. 10/16 16:45 Order name: Foot Right 3 View XRAY; Complete Time: 18:27 kdr 10/16 16:45 Order name: Ankle Right 3 View XRAY; Complete Time: 18:27 kdr 10/16 18:33 Order name: Dada wrap-joint; Complete Time: 18:56 kdr 10/16 18:33 Order name: Crutches; Complete Time: 18:56 kdr Administered Medications: 17:31 Drug: [place] (HYDROcodone-acetaminophen) 10 mg-325 mg 1 tabs Route: PO; ld1 18:57 Follow up: Response: No adverse reaction ss 18:08 Drug: Colchicine-Probenecid 1 tabs Route: PO; eh3 18:57 Follow up: Response: No adverse reaction ss 18:08 Drug: predniSONE 40 mg Route: PO; eh3 18:57 Follow up: Response: No adverse reaction ss 18:08 Drug: Pepcid (famotidine) 20 mg Route: PO; eh3 18:56 Follow up: Response: No adverse reaction ss Disposition Summary: 10/16/21 18:32 Discharge Ordered Location: Home kdr Problem: new kdr Symptoms: have improved kdr Condition: Stable kdr Diagnosis - Sprain of other ligament of right ankle kdr Followup: kdr - With: Private Physician - When: 2 - 3 days - Reason: If symptoms return, Further diagnostic work-up, Recheck today's complaints, Continuance of care, Re-evaluation by your physician Discharge Instructions: - Discharge Summary Sheet kdr - Ankle Sprain, [id number] kdr Forms: - Medication Reconciliation Form kdr - Thank You Letter kdr - Prescription Opioid Use kdr Prescriptions: - Tramadol 50 mg Oral Tablet - take 1 tablet by ORAL route every 8 hours as needed; 12 tablet; Refills: 0, kdr Product Selection Permitted - Ibuprofen 600 mg Oral Tablet - take 1 tablet by ORAL route every 6 hours As needed take with food; 15 tablet; kdr Refills: 0, Product Selection Permitted Signatures: Dispatcher [employer] Kenton Salazar MD MD kdr Stella Jordan RN RN ld1 Sunni Pelaez 3 Jenni Wright RN ss
--- NOTE | 2021-10-16 18:33 | ER ---
Nurse's Notes [facility] Name: Danny Leroy Jr Age: 61 yrs Sex: Male : 1960 Arrival Date: 10/16/2021 Time: 15:21 Bed 12 Private MD: Diagnosis: Sprain of other ligament of right ankle Presentation: 10/16 15:27 Chief complaint: Patient states: Right foot pain since this morning - denies injury. ld1 Coronavirus screen: At this time, the client does not indicate any symptoms associated with coronavirus-19. Ebola Screen: No symptoms or risks identified at this time. Initial Sepsis Screen: Does the patient meet any 2 criteria? No. Patient's initial sepsis screen is negative. Does the patient have a suspected source of infection? No. Patient's initial sepsis screen is negative. Risk Assessment: Do you want to hurt yourself or someone else? Patient reports no desire to harm self or others. Onset of symptoms was October 16, 2021. 15:27 Method Of Arrival: Wheelchair ld1 15:27 Acuity: MARSHA 4 ld1 Triage Assessment: 15:24 General: Appears in no apparent distress. comfortable, Behavior is cooperative, ld1 anxious. Pain: Complains of pain in right foot Pain does not radiate. Pain currently is 8 out of 10 on a pain scale. Quality of pain is described as throbbing. EENT: No signs and/or symptoms were reported regarding the EENT system. Neuro: Level of Consciousness is awake, alert, obeys commands, Oriented to person, place, time, situation. Cardiovascular: Capillary refill < 3 seconds Patient's skin is warm and dry. Respiratory: Airway is patent Respiratory effort is even, unlabored. GI: Abdomen is flat, non-distended. : No signs and/or symptoms were reported regarding the genitourinary system. Derm: No signs and/or symptoms reported regarding the dermatologic system. Musculoskeletal: No signs and/or symptoms reported regarding the musculoskeletal system. 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 - Social history:: Smoking status: Patient denies any tobacco usage or history of. Patient/guardian denies using alcohol. Screenin:09 Abuse screen: Denies threats or abuse. Denies injuries from another. Nutritional eh3 screening: No deficits noted. Tuberculosis screening: No symptoms or risk factors identified. Fall Risk Gait- Impaired (20 pts.). Assessment: 18:09 Reassessment: No changes from previously documented assessment. See triage assessment. eh3 General: Appears in no apparent distress. comfortable, Behavior is calm, cooperative, appropriate for age. Pain: Denies pain. Neuro: Level of Consciousness is awake, alert, obeys commands, Oriented to person, place, time, situation. Cardiovascular: Capillary refill < 3 seconds Patient's skin is warm and dry. Respiratory: Airway is patent Respiratory effort is even, unlabored. Musculoskeletal: Range of motion: intact in all extremities, Swelling present in right foot. 18:57 Reassessment: No changes from previously documented assessment. Patient and/or family ss updated on plan of care and expected duration. Pain level reassessed. Vital Signs: 15:24 BP 137 / 89; Resp 18; Temp 97.9(TE); Weight 72.57 kg; Height 5 ft. 7 in. (170.18 cm); ld1 Pain 8/10; 15:28 Pulse 95; Pulse Ox 97% on R/A; ld1 15:24 Body Mass Index 25.06 (72.57 kg, 170.18 cm) ld1 ED Course: 15:21 Patient arrived in ED. rg4 15:26 Arm band placed on right wrist. ld1 15:27 Triage completed. ld1 15:29 Stella Jordan, MONICA is Primary Nurse. ld1 15:35 Kenton Michaud MD is Attending Physician. kdr 17:53 Foot Right 3 View XRAY In Process Unspecified. EDMS 17:53 Ankle Right 3 View XRAY In Process Unspecified. EDMS 18:09 Patient has correct armband on for positive identification. Bed in low position. Call eh3 light in reach. Side rails up X2. 18:09 No provider procedures requiring assistance completed. eh3 18:57 Patient did not have IV access during this emergency room visit. Crutch training done. ss Dada wrap to right ankle. Administered Medications: 17:31 Drug: [place] (HYDROcodone-acetaminophen) 10 mg-325 mg 1 tabs Route: PO; ld1 18:57 Follow up: Response: No adverse reaction ss 18:08 Drug: Colchicine-Probenecid 1 tabs Route: PO; eh3 18:57 Follow up: Response: No adverse reaction ss 18:08 Drug: predniSONE 40 mg Route: PO; eh3 18:57 Follow up: Response: No adverse reaction ss 18:08 Drug: Pepcid (famotidine) 20 mg Route: PO; eh3 18:56 Follow up: Response: No adverse reaction ss Medication: 18:09 VIS not applicable for this client. eh3 Outcome: 18:32 Discharge ordered by . kdr 18:57 Discharged to home via wheelchair, with crutches, with family. ss 18:57 Condition: good 18:57 Discharge instructions given to patient, family, Instructed on discharge instructions, follow up and referral plans. medication usage, Demonstrated understanding of instructions, follow-up care, medications, Prescriptions given X 2. 18:58 Patient left the ED. ss Signatures: Dispatcher [employer] EDMS Kenton Michaud MD MD [facility] Jenni Wright RN RN Anna Miller 4 Stella Jordan RN RN ld1 Sunni Pelaez eh3
[2021-10-16 20:00] VITALS: BP 137/89; TEMP 97.9
[2021-10-16 20:02] VITALS: O2SAT 97
== END 2021-10-16 18:58 | disposition home or self-care (01) ==
LOC: ER 15:15
DX: S93.491A Sprain of other ligament of right ankle, initial encounter (principal); I10 Essential (primary) hypertension
CPT/HCPCS: 73630; 73610; 99284; J7512

== ENCOUNTER 2022-09-24 10:51 | Emergency (ER) | payer OTHER ==
--- OUTSIDE RECORDS SUMMARY | 2022-09-24 10:55 | XMS REPORT | Continuity of Care Document ---
:1960 Author Organization [facility] t Address [address] [place] [address] [place] [id number] Care Team Providers Name Role Phone RENÉ SCHERER Primary Care Physician Unavailable Ginny Chopra Attending Clinician Unavailable Beth Adair MD Attending Clinician BETH ADAIR Attending Clinician Unavailable René Scherer MD Attending Clinician Doctor Unassigned, [place] Attending Clinician Unavailable Payers Payer Name Policy Type Policy Number Effective Date Expiration Date Aleisha Beatty [id number] [facility] Problems Condition Condition Condition Status Onset Resolution Last Treating Co mments Source Name Details Category Date Date Treatment Clinician Date Bilateral Bilateral Disease Active Uni vers hearing hearing 3-24 ity of loss, loss, 00:00: [place] unspecifie unspecifie 00 Me dical d hearing d hearing Bran ch loss type loss type Tinea Tinea Disease Active 2019- Univers pedis of pedis of 3-24 [place] of both [place] [employer] Bilateral Bilateral Disease Active 2019-0 Uni vers foot pain foot pain 3-24 ity of 00:00: [place] 00 Medical Branch Hyperkalem Hyperkalem Disease Active 2019-0 U nivers ia ia 2-15 ity of 00:00: [address] Branch Rheumatoid Rheumatoid Disease Active 2019-0 U nivers factor factor 2-15 ity of positive positive 00:00: [place] [id number] Medical Branch ELENA ELENA Disease Active Univers positive positive 2-15 ity of 00:00: [address] Branch Polyarthra Polyarthra Disease Active U nivers lgia lgia 2-15 ity of 00:00: [address] Branch Elevated Elevated Disease Active Unive rs hematocrit hematocrit 2-15 it y of 00:00: [address] Elevated Elevated Disease Active Unive rs serum serum 2-15 ity of protein protein 00:00: [place] level level 00 Medical Branch Positive Positive Disease Active Unive rs anti-CCP anti-CCP 2-15 ity of test test 00:00: [address] Branch Osteoarthr Osteoarthr Disease Active Overview : Univers itis, itis, 2-13 Formattin ity of multiple multiple 00:00: g of this Carlos as sites sites 00 note Medical might be Branch different from the original. Lumbar spine, right hip Subclinica Subclinica Disease Active U nivers l l 1-15 ity of hypothyro[place]ro[place] [address] [place] [address] [id number] Essential Problem Active Comm on hypertensi Spirit on [facility] [id number] Other Problem Active Common chronic Spirit pain [facility] [id number] History of Problem Active C ommon 9101 hepatitis [facility] C [facility] [id number] Reactive Problem Active Commo n depression Spirit [facility] [id number] Acquired Problem Active Comm on hypothyroi Spirit dism [facility] [id number] Anxiety Problem Active Common Spirit [facility] Degenerati Degenerati Disease Active U nivers ve joint ve joint ity of disease [place] disease of [place] low back low back Medica l Branch Allergies, Adverse Reactions, Alerts Allergy Allergy Status Severity Reaction(s) Onset Inactive Treating Comm ents Source Name Type Date Date Clinician NO KNOWN Drug Active Univers ALLERGIE Class ity of S [facility] [place] Social History Social Habit Start Date Stop Date Quantity Comments Source History of Current Smoker Common Spi rit - [facility] Sex Assigned At Common Sp faby - [facility] Exposure to Not sure University of SARS-CoV-2 [place] Medical (event) Branch Alcohol intake 2018-07-12 2018-07-12 Current University of 00:00:00 00:00:00 non-drinker of [facility] alcohol Branch (finding) Tobacco use and 2018-04-22 2018-04-22 Never used Universit y of exposure 00:00:00 00:00:00 [facility] [place] Smoking Status Start Date Stop Date Source Current Smoker 2021-02-27 00:00:00 Common Spiri t - [facility] Former smoker 2018-04-22 00:00:00 2018-04-22 00:00:00 [facility] [place] [facility] Medications Ordered Filled Start Stop Current Ordering Indication Dosage Frequency Signature Comments Components Source Medication Medication Date Date Medication? Clinician (SIG) Name Name Meloxicam Meloxicam 2020-03- No 1{table QD Meloxicam 7.5 MG 7.5 MG 1-23 05-22 t} 7.5 MG 00:00: 00:00 00 :00 Meloxicam Meloxicam 2020-03- No 1{table QD Meloxicam 7.5 MG 7.5 MG 1-23 05-22 t} 7.5 MG 00:00: 00:00 00 :00 Meloxicam Meloxicam 2020-03- No 1{table QD Meloxicam 7.5 MG 7.5 MG 1-23 05-22 t} 7.5 MG 00:00: 00:00 00 :00 Meloxicam Meloxicam 2020-03- No 1{table QD Meloxicam 7.5 MG 7.5 MG 1-23 05-22 t} 7.5 MG 00:00: 00:00 00 :00 gabapentin 2019- Yes [id number] TAKE 2 Univers 400 mg 0-23 CAPSULES ity of capsule 00:00: BY MOUTH [place] 00 AT BEDTIME Medical Branch METOPROLOL 2018- Yes [id number] TAKE 1 U nivers SUCCINATE 9-04 TABLET BY ity o f XL 50 mg 24 00:00: MOUTH [place] hr tablet 00 EVERY DAY Medic al Branch busPIRone 2018- Yes [id number] 10mg Take 1 Un benedicto 10 mg 8-08 tablet by ity of tablet 00:00: mouth 2 [place] 00 (two) Medical times Branch daily. FELODIPINE 2019- Yes [id number] TAKE 1 U nivers 5 mg 24 hr 7-23 TABLET BY ity of tablet 00:00: MOUTH [place] 00 EVERY DAY Medical Branch LEVOTHYROXI 2019-0 Yes TAKE 1 Univ ers NE 75 mcg 4-12 TABLET BY ity o f tablet 00:00: MOUTH [place] 00 EVERY DAY Medical IN THE Branch MORNING Felodipine Felodipine Yes Ginny take 1 Common ER ER [place] tablet by Spirit mouth - [facility] every day [facility] Levothyroxi Levothyroxi Yes Ginny take 1 Common ne Sodium ne Sodium [place] tablet by Spirit mouth - [facility] every [facility] Gabapentin Gabapentin Yes Ginny take 2 Common [place] capsules Spirit by mouth - [facility] at bedtime [facility] Metoprolol Metoprolol Yes Ginny take 1 Common Succinate Succinate [place] tablet by Spirit ER ER mouth - [facility]I every day [facility] Metoprolol Metoprolol No Metoprolol Succinate Succinate Succinate ER 50 MG ER 50 MG ER 50 MG Gabapentin Gabapentin No Gabapentin 600 MG 600 MG 600 MG Metoprolol Metoprolol No QD Metoprolol Succinate Succinate Succinate ER 50 MG ER 50 MG ER 50 MG Levothyroxi Levothyroxi No QD Levothyrox ne Sodium ne Sodium ine Sodium 75 MCG 75 MCG 75 MCG Levothyroxi Levothyroxi No Levothyrox ne Sodium ne Sodium ine Sodium 75 MCG 75 MCG 75 MCG Gabapentin Gabapentin No Gabapentin 600 MG 600 MG 600 MG Felodipine Felodipine No Felodipine ER 5 MG ER 5 MG ER 5 MG Felodipine Felodipine No QD Felodipine ER 5 MG ER 5 MG ER 5 MG Metoprolol Metoprolol No Metoprolol Succinate Succinate Succinate ER 50 MG ER 50 MG ER 50 MG Gabapentin Gabapentin No Gabapentin 600 MG 600 MG 600 MG Metoprolol Metoprolol No QD Metoprolol Succinate Succinate Succinate ER 50 MG ER 50 MG ER 50 MG Levothyroxi Levothyroxi No QD Levothyrox ne Sodium ne Sodium ine Sodium 75 MCG 75 MCG 75 MCG Levothyroxi Levothyroxi No Levothyrox ne Sodium ne Sodium ine Sodium 75 MCG 75 MCG 75 MCG Gabapentin Gabapentin No Gabapentin 600 MG 600 MG 600 MG Felodipine Felodipine No Felodipine ER 5 MG ER 5 MG ER 5 MG Felodipine Felodipine No QD Felodipine ER 5 MG ER 5 MG ER 5 MG Metoprolol Metoprolol No Metoprolol Succinate Succinate Succinate ER 50 MG ER 50 MG ER 50 MG Levothyroxi Levothyroxi No QD Levothyrox ne Sodium ne Sodium ine Sodium 75 MCG 75 MCG 75 MCG Gabapentin Gabapentin No Gabapentin 600 MG 600 MG 600 MG Felodipine Felodipine No QD Felodipine ER 5 MG ER 5 MG ER 5 MG Levothyroxi Levothyroxi No Levothyrox ne Sodium ne Sodium ine Sodium 75 MCG 75 MCG 75 MCG Gabapentin Gabapentin No Gabapentin 600 MG 600 MG 600 MG Felodipine Felodipine No Felodipine ER 5 MG ER 5 MG ER 5 MG Metoprolol Metoprolol No QD Metoprolol Succinate Succinate Succinate ER 50 MG ER 50 MG ER 50 MG Felodipine Felodipine No QD Felodipine ER 5 MG ER 5 MG ER 5 MG Gabapentin Gabapentin No Gabapentin 600 MG 600 MG 600 MG Felodipine Felodipine No Felodipine ER 5 MG ER 5 MG ER 5 MG Gabapentin Gabapentin No Gabapentin 600 MG 600 MG 600 MG Levothyroxi Levothyroxi No QD Levothyrox ne Sodium ne Sodium ine Sodium 75 MCG 75 MCG 75 MCG Metoprolol Metoprolol No QD Metoprolol Succinate Succinate Succinate ER 50 MG ER 50 MG ER 50 MG Levothyroxi Levothyroxi No Levothyrox ne Sodium ne Sodium ine Sodium 75 MCG 75 MCG 75 MCG Metoprolol Metoprolol No Metoprolol Succinate Succinate Succinate ER 50 MG ER 50 MG ER 50 MG Vital Signs Vital Name Observation Time Observation Value Comments Source height 2021-02-04 14:20:00 67 [in_i] [facility] weight 2021-02-04 14:20:00 161.8 [lb_av] [facility] temperature 2021-02-04 14:20:00 97.9 [degF] [facility] bmi 2021-02-04 14:20:00 25.34 kg/m2 [facility] oximetry 2021-02-04 14:20:00 100 % [facility] respiratory rate 2021-02-04 14:20:00 16 /min Comm on [facility] blood pressure 2021-02-04 14:20:00 138 mm[Hg] [facility] - systolic [facility] blood pressure 2021-02-04 14:20:00 80 mm[Hg] [facility] - diastolic [facility] height 2021-01-30 09:30:00 67 [in_i] Common [facility] weight 2021-01-30 09:30:00 162 [lb_av] Common [facility] bmi 2021-01-30 09:30:00 25.37 kg/m2 [facility] blood pressure 2021-01-30 09:30:00 164 mm[Hg] Common [facility] - systolic [facility] blood pressure 2021-01-30 09:30:00 95 mm[Hg] Common [facility] - diastolic [facility] Procedures This patient has no known procedures. Encounters Start End Encounter Admission Attending Care Care Encounter Source Date/Time Date/Time Type Type Clinicians Facility Department ID 2021-05-30 Outpatient [place], STLMLC STLMLC [id number] Common 09:50:01 Ginny [facility] 2021-04-28 Outpatient [place], STLMLC STLMLC [id number] Common 09:38:00 Ginny [facility] 2021-04-09 Outpatient [place], STLMLC STLMLC [id number] Common 14:14:44 Ginny [id number] [facility] 2021-04-09 Outpatient [place], STLMLC STLMLC [id number] Common 13:39:12 Ginny [id number] [facility] 2021-04-09 Outpatient [place], STLMLC STLMLC [id number] Common 12:22:35 Ginny [id number] [facility] 2021-04-09 Outpatient [place], STLMLC STLMLC [id number] Common 11:39:47 Ginny [id number] [facility] 2021-04-09 Outpatient [place], STLMLC STLMLC [id number] Common 11:04:30 Ginny [id number] [facility] 2021-04-30 2021-04-30 (TEL) STLMLC STLMLC [id number] Co mmon 00:00:00 00:00:00 [facility] 2021-04-15 2021-04-15 (TEL) STLMLC STLMLC [id number] Co mmon 00:00:00 00:00:00 [facility] 2021-02-04 2021-02-04 OFFICE STLMLC STLMLC [id number] Co mmon 00:00:00 00:00:00 VISIT Spirit ESTAB PT - [facility] LEVEL [facility] 2021-01-30 2021-01-30 OFFICE STLMLC STLMLC [id number] Co mmon 00:00:00 00:00:00 VISIT Spirit ESTAB PT - [facility] LEVEL 4 [facility] 2021-01-20 2021-01-20 [facility] [id number] Univers 15:15:00 15:30:00 Visit [facility] [id number] it y farrah [place] [id number] Carlos as BOSSMAN?BLEA [phone] [address] MEDICAL OFFICE BUILDING 2021-01-20 2021-01-20 [facility] [id number] Univers 15:15:00 15:15:00 [facility] 2021-01-20 2021-01-20 [facility] [id number] Univers 15:15:00 15:15:00 [facility] 2020-03-19 2020-03-19 Outpatient STLMLC STLMLC [id number] Common 00:00:00 00:00:00 [facility] 2019-11-07 2019-11-07 Outpatient Clark Rodast [id number] Common 14:40:00 14:40:00 [facility] [address] [facility] 2019-10-03 2019-10-03 Outpatient Clark Rodast [id number] Common 15:00:00 15:00:00 [facility] it [address] [facility] 2019-10-02 2019-10-02 Outpatient Clark Rodast [id number] Common 11:03:00 11:03:00 [facility] it [address] [facility] 2019-08-08 2019-08-08 [facility] [id number] Common 15:00:00 15:00:[address] [facility] 2019-04-17 2019-04-17 [facility] [id number] Common 16:40:00 16:40:[address] Sp[address] [facility] 2019-02-23 2019-02-23 [facility] [id number] Common 09:25:00 09:25:00 t Specialty/U Sp faby Specialty rology [facility] /Urology Clinic [facility] 2019-02-22 2019-02-22 [facility] [id number] Common 09:15:00 09:15:00 t Specialty/U Sp faby Specialty rology - [facility] /Urology Clinic [facility] 2019-02-13 2019-02-13 Outpatient [facility] [id number] Common 13:48:00 13:48:[address] Sp[address] [facility] 2019-02-13 2019-02-13 Outpatient [facility] [id number] Common 10:47:00 10:47:[address] [facility] 2019-02-07 2019-02-07 Outpatient [facility] [id number] Common 15:00:00 15:00:[address] [facility] 2019-02-03 2019-02-03 Outpatient [facility] [id number] Common 10:20:00 10:20:[address] [facility] 2019-01-25 2019-01-25 Outpatient [facility] [id number] Common 12:05:00 12:05:[address] [facility] 2018-12-19 2018-12-19 [facility] [id number] Common 14:25:00 14:25:00 [address] [place] [address] Spir [address] [facility] 2018-12-13 2018-12-13 Outpatient Mirandagerardo Chetan [id number] Common 16:38:00 16:38:00 t Bone Bone [facility] Spiri t and Joint [facility] - [facility] 2018-12-05 2018-12-05 Outpatient Mirandagerardo Clarkt [id number] Common 09:30:00 09:30:00 t Bone Bone [facility] Spiri t and Joint [facility] - [facility] 2018-11-28 2018-11-28 Outpatient Mirandagerardo Chetan [id number] Common 16:36:00 16:36:00 t [facility] Bone [facility] Spiri t and Joint [facility] - [facility] 2018-11-16 2018-11-16 [facility] [id number] Univers 00:00:00 00:00:00 [facility] [id number] ity of [place] [id number] Carlos as Professio [phone] [address] One 2018-11-10 2018-11-10 Outpatient Clrak Benton [id number] Common 14:00:00 14:00:00 t Bone Bone and Spiri t and Joint [facility] - [facility] 2018-11-08 2018-11-08 Outpatient Clark Benton [id number] Common 11:00:00 11:00:00 t [facility] Spir it Road [facility] Family Medicine [facility] 2018-11-04 2018-11-04 [facility] 1..[id number] Univers 00:00:00 00:00:00 [facility] [id number] ity of [place] [id number] Carlos as Professio [phone] [address] Office Building One 2018-10-20 2018-10-20 [facility] [id number] Univers 00:00:00 00:00:00 [facility] [id number] ity of [place] [id number] Carlos as Professio [phone] Il dical nal 0[address] Office Building One 2018-10-17 2018-10-17 Chadwick Scherer INCHANEL [id number] Univers 00:00:00 00:00:00 [employer] [address] [id number] ity of [place] [id number] Carlos as Professio [phone] [facility] 0[address] [employer] Office Building One 2018-09-29 2018-09-29 Outpatient [facility] [id number] Common 13:30:00 13:30:00 t Bone Bone and Spiri t and Joint [facility] - [facility] 2018-09-01 2018-09-01 [facility] [id number] Common 14:00:00 14:00:00 t Bone Bone and Spiri t and Joint [facility] - [facility] 2018-07-28 2018-07-28 Out[facility] [id number] Common 10:01:00 10:01:00 t Bone Bone and Spiri t and Joint Joint - [facility] 2018-06-30 2018-06-30 Out[facility] [id number] Common 08:30:00 08:30:00 t Bone Bone and Spiri t and Joint [facility] - [facility] 2012-06-15 2012-06-15 Orders Doctor LAUREANO [id number] Univers 00:00:00 00:00:00 Only Unassigned, BERNARDO [id number] ity of [place] [facility] [id number] Carlos as [phone] [facility] 009 Branch 2012-06-01 2012-06-01 Orders Doctor LAUREANO [id number] Univers 00:00:00 00:00:00 Only Unassigned, BERNARDO [id number] ity of [place] [facility] [id number] Carlos as [phone] [facility] 009 Branch Results This patient has no known results.
[2022-09-24 11:22] LABS: Absolute Lymphocytes (CBC) 1.3 K/uL (0.7-4.9); Hematocrit 41.9 % (39.6-49.0); Lymphocytes % 19.9 % (15.3-44.8); MCV 91.3 fL (80-100); MPV 8.5 fL (7.6-11.3); RBC Red Blood Cell Count 4.59 M/uL (4.33-5.43)
[2022-09-24 11:38] LABS: Albumin 3.8 g/dL (3.4-5.0); Bilirubin Total 0.2 mg/dL (0.2-1.0); Potassium 4.4 mEq/L (3.5-5.1); Protein, Total 7.5 g/dL (6.4-8.2)
--- NOTE | 2022-09-24 12:45 | RAD REPORT ---
EXAM DESCRIPTION: CTAbdomen Pelvis W Contrast - 09/24/2022 12:21 pm CLINICAL HISTORY: Abdominal pain. L inguinal hernia, reduced;Abd pain COMPARISON: Abdomen Pelvis W Contrast dated 10/09/2021 TECHNIQUE: Biphasic CT imaging of the abdomen and pelvis was performed with 100 ml non-ionic IV cont rast. All CT scans are performed using dose optimization technique as appropriate and may include automated exposure control or mA/KV adjustment according to patient size. FINDINGS: The lung bases are clear. The liver, spleen, pancreas, adrenal glands and right kidney are within normal limits. Small nonobstr ucting stone inferior left kidney. No bowel obstruction, free air, free fluid or abscess. Significant stool is retained throughout the c olon. The appendix is normal. Small left inguinal hernia. No evidence of significant lymphadenopathy. No suspicious bony findings. IMPRESSION: No acute intra-abdominal or pelvic finding. Small left inguinal hernia without bowel involvement. Significant fecal retention throughout the colon. Small left renal calculus.
--- NOTE | 2022-09-24 13:14 | EDPHYS ---
Physician Documentation [facility] Name: Danny Leroy Jr Age: 62 yrs Sex: Male : 1960 Arrival Date: 09/24/2022 Time: 10:51 Bed 13 Private MD: ED Physician Marito Meyer HPI: 09/24 11:52 This 62 yrs old Male presents to ER via Ambulatory with complaints of Testicular Pain, rt Testicular Swelling. 11:53 Patient presents to the ED with 2 weeks of swelling to the left scrotum. Reports pain rt to that region. The patient states that this is never happened before. Pain is aching nature, nonradiating. Denies nausea, vomiting, denies other acute complaints at this time. Symptoms are moderate severity.. 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 - Family history:: not pertinent. - Social history:: Smoking status: . ROS: 11:53 Constitutional: Negative for fever, chills, and weight loss, Cardiovascular: Negative rt for chest pain, palpitations, and edema, Respiratory: Negative for shortness of breath, cough, wheezing, and pleuritic chest pain, Abdomen/GI: Negative for abdominal pain, nausea, vomiting, diarrhea, and constipation, MS/Extremity: Negative for injury and deformity, Skin: Negative for injury, rash, and discoloration, Psych: Negative for depression, anxiety, suicide ideation, homicidal ideation, and hallucinations. 11:53 : Positive for Scrotal swelling, negative for penile pain. Exam: 11:53 Constitutional: This is a well developed, well nourished patient who is awake, alert, rt and in no acute distress. Head/Face: Normocephalic, atraumatic. Chest/axilla: Normal chest wall appearance and motion. Nontender with no deformity. No lesions are appreciated. Cardiovascular: Regular rate and rhythm with a normal S1 and S2. No gallops, murmurs, or rubs. Normal PMI, no JVD. No pulse deficits. Respiratory: Lungs have equal breath sounds bilaterally, clear to auscultation and percussion. No rales, rhonchi or wheezes noted. No increased work of breathing, no retractions or nasal flaring. Abdomen/GI: Soft, non-tender, with normal bowel sounds. No distension or tympany. No guarding or rebound. No evidence of tenderness throughout. Skin: Warm, dry with normal turgor. Normal color with no rashes, no lesions, and no evidence of cellulitis. MS/ Extremity: Pulses equal, no cyanosis. Neurovascular intact. Full, normal range of motion. Neuro: Awake and alert, GCS 15, oriented to person, place, time, and situation. Cranial nerves II-XII grossly intact. Motor strength 5/5 in all extremities. Sensory grossly intact. Cerebellar exam normal. Normal gait. Psych: Awake, alert, with orientation to person, place and time. Behavior, mood, and affect are within normal limits. 11:53 : Reducible left inguinal hernia present, testicles otherwise unremarkable.. Vital Signs: 11:10 BP 144 / 97; Pulse 96; Resp 16; Temp 97.8; Pulse Ox 91% ; Pain 5/10; sm8 12:40 BP 173 / 109; Pulse 84; Resp 18; Pulse Ox 92% on R/A; Pain 5/10; nj1 13:24 BP 148 / 79; Pulse 89; Resp 16; Pulse Ox 98% on R/A; iw 11:10 Pain Scale: Adult sm8 12:40 Pain Scale: Adult nj1 MDM: 10:55 Patient medically screened. rt 20:12 Differential diagnosis: Hernia, obstruction, mass. Differential diagnosis:. Data rt reviewed: vital signs, nurses notes, lab test result(s), radiologic studies. Independent interpretation of the following test(s) in the Emergency Department CT Scan: My interpretation is No bowel obstruction seen on interpretation of the CT scan images. Test considered but Not performed:. Test considered but Not performed: Ultrasound Patient clearly has a hernia, do not believe there is any testicular involvement to suggest a torsion, ultrasound not indicated. Counseling: I had a detailed discussion with the patient and/or guardian regarding: the historical points, exam findings, and any diagnostic results supporting the discharge/admit diagnosis, lab results, radiology results, the need for outpatient follow up. ED course: Patient with obvious hernia on examination, easily reducible without difficulty. CT scan only shows a small fat-containing hernia. No evidence of obstruction, strangulation, labs are benign. Patient does not require emergent surgical intervention at this time, is referred to surgeon as an outpatient for elective repair.. 09/24 11:04 Order name: CBC with Diff; Complete Time: 11:46 rt 09/24 11:04 Order name: CMP; Complete Time: 11:46 rt 09/24 11:04 Order name: CT Abd/Pelvis - IV Contrast Only; Complete Time: 12:47 rt Administered Medications: No medications were administered Disposition Summary: 09/24/22 13:13 Discharge Ordered Location: Home rt Problem: new rt Symptoms: have improved rt Condition: Stable rt Diagnosis - Unilateral inguinal hernia, without obstruction or gangrene rt Followup: rt - With: Abimael Boyle MD - When: 5 - 6 days - Reason: Discharge Instructions: - Discharge Summary Sheet rt - Inguinal Hernia, Adult rt Forms: - Medication Reconciliation Form rt - Thank You Letter rt - Antibiotic Education rt - Prescription Opioid Use rt - Patient Portal Instructions rt Signatures: Dispatcher [employer] Jeniffer Peralta RN RN iw Raymond Partida RN RN ll1 Marito Meyer MD MD rt
--- NOTE | 2022-09-24 13:14 | ER ---
Nurse's Notes [facility] Name: Danny Leroy Jr Age: 62 yrs Sex: Male : 1960 Arrival Date: 09/24/2022 Time: 10:51 Bed 13 Private MD: Diagnosis: Unilateral inguinal hernia, without obstruction or gangrene Presentation: 09/24 10:54 Ebola Screen: Patient denies travel to an Ebola-affected area in the 21 days before ll1 illness onset. Initial Sepsis Screen: Does the patient meet any 2 criteria? No. Patient's initial sepsis screen is negative. Does the patient have a suspected source of infection? Yes: Other: testes pain/swelling. Risk Assessment: Do you want to hurt yourself or someone else? Patient reports no desire to harm self or others. 10:58 Chief complaint: Patient states: Testicular pain/swelling for 3 weeks. No fever. ll1 Coronavirus screen: Client denies travel out of the [place] in the last 14 days. At this time, the client does not indicate any symptoms associated with coronavirus-19. Onset of symptoms was September 01, 2022. 10:58 Method Of Arrival: Ambulatory ll1 10:58 Acuity: MARSHA 3 ll1 Triage Assessment: 10:55 General: Appears uncomfortable, Behavior is cooperative, appropriate for age. Pain: ll1 Complains of pain in testes Quality of pain is described as aching. : Reports pain testicle, since 3 weeks. 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 - Family history:: not pertinent. - Social history:: Smoking status: . Screenin:28 [facility] ED Fall Risk Assessment (Adult) History of falling in the last 3 months, nj1 including since admission No falls in past 3 months (0 pts) Confusion or Disorientation No (0 pts) Intoxicated or Sedated No (0 pts) Impaired Gait No (0 pts) Mobility Assist Device Used No (0 pt) Altered Elimination No (0 pt) Score/Fall Risk Level 0 - 2 = Low Risk Oriented to surroundings, Maintained a safe environment, Hourly rounding (assess needs \\T\\ fall precautionary measures) done. Abuse screen: Denies threats or abuse. Denies injuries from another. Nutritional screening: No deficits noted. Tuberculosis screening: No symptoms or risk factors identified. Assessment: 11:18 General: Appears in no apparent distress. comfortable, Behavior is calm, cooperative, nj1 appropriate for age. 11:18 Pain: Complains of pain in left testicle Pain currently is 5 out of 10 on a pain scale. nj1 Neuro: Level of Consciousness is awake, alert, obeys commands, Oriented to person, place, time, situation. Cardiovascular: Patient's skin is warm and dry. Respiratory: Airway is patent Respiratory effort is even, unlabored. : Unable to assess by inspection, patient does not want a female to assess him. Dr Meyer aware. Reports pain in left testicle, since "months" Pain is 5 out of 10 on a pain scale. Swelling to left testicle. 12:18 Reassessment: Not in room at this time. nj1 12:44 Reassessment: Patient appears in no apparent distress at this time. No changes from nj1 previously documented assessment. Patient and/or family updated on plan of care and expected duration. Pain level reassessed. Patient is alert, oriented x 3, equal unlabored respirations, skin warm/dry/pink. 13:24 Reassessment: Patient appears in no apparent distress at this time. Patient and/or iw family updated on plan of care and expected duration. Pain level reassessed. Patient is alert, oriented x 3, equal unlabored respirations, skin warm/dry/pink. Vital Signs: 11:10 BP 144 / 97; Pulse 96; Resp 16; Temp 97.8; Pulse Ox 91% ; Pain 5/10; sm8 12:40 BP 173 / 109; Pulse 84; Resp 18; Pulse Ox 92% on R/A; Pain 5/10; nj1 13:24 BP 148 / 79; Pulse 89; Resp 16; Pulse Ox 98% on R/A; iw 11:10 Pain Scale: Adult sm8 12:40 Pain Scale: Adult nj1 ED Course: 10:53 Patient arrived in ED. im 10:53 Marito Meyer MD is Attending Physician. rt 10:54 Arm band placed on Patient placed in an exam room, on a stretcher. ll1 10:59 Triage completed. ll1 11:06 Jeniffer Jurado, RN is Primary Nurse. iw 11:07 Primary Nurse role handed off by Jeniffer Jurado, RN nj1 11:07 Emiliana James, RN is Primary Nurse. nj1 11:18 Patient has correct armband on for positive identification. Bed in low position. Call nj1 light in reach. Provided Education on: Fall precautions. 12:23 CT Abd/Pelvis - IV Contrast Only In Process Unspecified. EDMS 12:25 CT completed. Patient tolerated procedure well. Note: 22 g diffusics to lt ac by kenya delgado [place]. 13:11 Abimael Boyle MD is Referral Physician. rt 13:24 No provider procedures requiring assistance completed. IV discontinued, intact, iw bleeding controlled, No redness/swelling at site. Pressure dressing applied. Administered Medications: No medications were administered Medication: 13:24 VIS not applicable for this client. iw Outcome: 13:13 Discharge ordered by MD. rt 13:24 Discharged to home ambulatory. iw 13:24 Condition: good 13:24 Discharge instructions given to patient, Instructed on discharge instructions, follow up and referral plans. Demonstrated understanding of instructions, follow-up care. 13:24 Patient left the ED. iw Signatures: Dispatcher [employer] [place] Alex Irene, RN RN iw Raymond Partida RN RN ll1 Marito Meyer MD MD rt Emiliana James, MONICA RN nj1 Lyla Cabrera Scarlett 8
[2022-09-24 13:38] VITALS: TEMP 97.8
[2022-09-24 13:42] VITALS: BP 148/79; O2SAT 98
== END 2022-09-24 13:24 | disposition home or self-care (01) ==
LOC: ER 10:51
DX: K40.90 Unilateral inguinal hernia, without obstruction or gangrene, not specified as recurrent (principal); I10 Essential (primary) hypertension
CPT/HCPCS: 85025; 36415; 80053; 74177; 99283; Q9967